=== PATIENT | female | born 1965 | race Caucasian/White ===

== ENCOUNTER 2016-12-15 23:53 | Inpatient (IN) | payer BC, OTHER ==
[~2016-12-15] VITALS: Ht 170.2 cm; Wt 99.2 kg
[2016-12-16] VITALS (10 sets, daily range): BP systolic 118–153; BP diastolic 66–85; PULSE 67–99; TEMP 36.5–36.9; O2SAT 94–97; Ht 170.2 cm; Wt 99.2 kg
[2016-12-16] MEDS ORDERED: SODIUM CHLORIDE 0.9% 1000ML 1,000 ML IV STA ×2 (00:19)
[2016-12-16 00:28] LABS: BASO % 0.1 %; BASO ABS # 0.01 K/uL (0-0.2); COMPLETE YES; EOS % 0.5 %; HEMATOCRIT 46.5 % (37-47); IG% 0.3 %; LYMPH % 46.1 %; LYMPH ABS # 4.97 K/uL (1.2-3.4); MEAN CELL VOLUME 87.6 fL (80-100); MEAN CORPUSCULAR HEMOGLOBIN 29.4 pg (25-34); MEAN CORPUSCULAR HGB CONC 33.5 g/dl (32-36); MEAN PLATELET VOLUME 10.6 fL (7.4-10.4); MONO % 0.6 %; NEUT % 52.4 %; PLATELET COUNT 312 K/uL (130-400); RED BLOOD COUNT 5.31 M/uL (4.2-5.4); WHITE BLOOD COUNT 10.78 K/uL (4.8-10.8)
--- NOTE | 2016-12-16 00:37 | EMERGENCY ROOM VISIT NOTE ---
History First contact with patient: 00:12 Chief Complaint: SYNCOPE Stated Complaint: PASSED OUT TWICE,EXCESSIVE COUGHING,HIT KNEE,RESP Nursing Triage Summary: pt reports she woke up from sleep "feeling funny" with sweats, nausea, headache , and sob. states she got out of bed and "passed out" c/o left knee pain, abrasion noted to left knee. reports a cough and "trouble breathing" at this time. denies pmh or daily medications. states she has been hospitalized for pneumonia in the past. denies numb/tingling/vision changes/chest pain at this time. pt has noted hacking cough. at this time, pt alert and oriented x4. breathing regularly and independently. o2 97% on Room air. History of Present Illness The patient is a 51 year old female who presents to the Emergency Room with complaints of a syncopal episode. The patient states that she woke up feeling strange and tingly, and when she stood up she passed out. She states that she has had congestion in her chest and coughing for the past 5 days. She denies fevers. She reports nausea and shortness of breath. She states she has had a history of pneumonia and has been hospitalized for it in the past. She denies any other past medical history. She reports feeling lightheaded at this time. She denies any chest pain, numbness or weakness. She denies any headache. She has no neck pain but states this is chronic. She denies any neck stiffness. Review of Systems A complete 10 point review of systems was reviewed with the patient with pertinent positives and negatives as per history of present illness. All else were negative. Past Medical/Surgical History Medical Problems: (1) Respiratory failure, acute Social History Smoking Status: Current Every Day Smoker Current/Historical Medications Scheduled Ibuprofen-Diphenhydramine Citr (Advil Pm), 1 TAB PO DIRECTED Omeprazole (Prilosec), 20 MG PO DAILY Physical Exam Vital Signs Date Time Temp Pulse Resp B/P (MAP) Pulse Ox O2 Delivery O2 Flow Rate FiO2 12/16/16 03:00 69 18 139/88 95 Nasal Cannula 3.0 12/16/16 02:13 75 18 131/73 98 Nasal Cannula 3.0 12/16/16 01:45 70 18 128/70 100 Nasal Cannula 3.0 8/30/17 01:38 36.4 12/16/16 01:15 69 18 119/85 100 Nasal Cannula 3.0 12/16/16 01:00 67 18 128/59 99 Nasal Cannula 3.0 12/16/16 00:48 73 20 113/57 96 Nasal Cannula 3.0 12/16/16 00:26 94 Nasal Cannula 3.0 12/16/16 00:25 88 Room Air 12/16/16 00:15 80 12/16/16 00:11 35.8 84 18 84/54 93 Room Air 12/16/16 00:00 94 20 82/50 96 Room Air Physical Exam VITALS: Vitals are noted on the nurse's note and reviewed by myself. Vital signs stable. GENERAL: This is a 51-year-old female, in no acute distress, nondiaphoretic, well-developed well-nourished. SKIN: Slightly cool to touch. HEAD: Normocephalic atraumatic. EARS: External auditory canals clear, tympanic membranes pearly miller without erythema or effusion bilaterally. EYES: Pupils equal round and reactive to light and accommodation. Conjunctivae without injection, sclerae without icterus. NOSE: Patent, turbinates without inflammation or discharge. No sinus tenderness. MOUTH: Mucous membranes moist. Tonsils are not enlarged. Pharynx without erythema or exudate. NECK: Supple without nuchal rigidity. No lymphadenopathy. HEART: Regular rate and rhythm. Grade 2 systolic murmur. LUNGS: Clear to auscultation bilaterally without wheezes, rales or rhonchi. No retractions or accessory muscle use. ABDOMEN: Positive bowel sounds x 4. Soft, nontender. MUSCULOSKELETAL: There is an abrasion to the anterior left knee with some tenderness. NEURO: Patient was alert and oriented to person place and time. Medical Decision & Procedures ER Provider Diagnostic Interpretation: CHEST X-RAY: Questionable patchy bilateral lower lobe infiltrates. Normal cardiac silhouette. No evidence of failure. CTA CHEST: No evidence of pulmonary embolism, thoracic aortic aneurysm or dissection. Areas of mild interstitial prominence bilaterally and atelectasis versus scarring in the right lung. No distinct focal consolidation, pleural effusion or pneumothorax. Cardiac size within normal limits. No pericardial effusion. Right adrenal low-attenuation 4 cm nodule suggestive of adenoma. Given size of nodule, suggest follow-up to ensure stability. Additional/incidental findings: Cholecystectomy. Probable left upper pole renal cyst, incompletely seen. Radiologist: Ami Smith MD Laboratory Results 12/16/16 00:15 Red Blood Count 5.31, Mean Corpuscular Volume 87.6, Mean Corpuscular Hemoglobin 29.4, Mean Corpuscular Hemoglobin Concent 33.5, Mean Platelet Volume 10.6, Neutrophils (%) (Auto) 52.4, Lymphocytes (%) (Auto) 46.1, Monocytes (%) (Auto) 0.6, Eosinophils (%) (Auto) 0.5, Basophils (%) (Auto) 0.1, Neutrophils # (Auto) 5.66, Lymphocytes # (Auto) 4.97, Monocytes # (Auto) 0.06, Eosinophils # (Auto) 0.05, Basophils # (Auto) 0.01 12/16/16 00:15 Test 12/16/16 00:15 12/16/16 00:34 12/16/16 02:10 White Blood Count 10.78 K/uL (4.8-10.8) Red Blood Count 5.31 M/uL (4.2-5.4) Hemoglobin 15.6 g/dL (12.0-16.0) Hematocrit 46.5 % (37-47) Mean Corpuscular Volume 87.6 fL (80-100) Mean Corpuscular Hemoglobin 29.4 pg (25-34) Mean Corpuscular Hemoglobin Concent 33.5 g/dl (32-36) Platelet Count 312 K/uL (130-400) Mean Platelet Volume 10.6 fL (7.4-10.4) Neutrophils (%) (Auto) 52.4 % Lymphocytes (%) (Auto) 46.1 % Monocytes (%) (Auto) 0.6 % Eosinophils (%) (Auto) 0.5 % Basophils (%) (Auto) 0.1 % Neutrophils # (Auto) 5.66 K/uL (1.4-6.5) Lymphocytes # (Auto) 4.97 K/uL (1.2-3.4) Monocytes # (Auto) 0.06 K/uL (0.11-0.59) Eosinophils # (Auto) 0.05 K/uL (0-0.5) Basophils # (Auto) 0.01 K/uL (0-0.2) RDW Standard Deviation 41.0 fL (36.4-46.3) RDW Coefficient of Variation 12.8 % (11.5-14.5) Immature Granulocyte % (Auto) 0.3 % Immature Granulocyte # (Auto) 0.03 K/uL (0.00-0.02) Prothrombin Time 10.7 SECONDS (9.0-12.0) Prothromb Time International Ratio 1.0 (0.9-1.1) Activated Partial Thromboplast Time 23.8 SECONDS (21.0-31.0) Partial Thromboplastin Ratio 0.9 Anion Gap 9.0 mmol/L (3-11) Estimated GFR () 61.5 Estimated GFR (Non- 53.0 BUN/Creatinine Ratio 5.7 (10-20) Calcium Level 8.9 mg/dl (8.5-10.1) Magnesium Level 1.5 mg/dl (1.8-2.4) Total Bilirubin 0.5 mg/dl (0.2-1) Aspartate Amino Transf (AST/SGOT) 14 U/L (15-37) Alanine Aminotransferase (ALT/SGPT) 23 U/L (12-78) Alkaline Phosphatase 102 U/L (45-117) Troponin I < 0.015 ng/ml (0-0.045) Pro-B-Type Natriuretic Peptide 110 pg/ml (0-450) Total Protein 6.9 gm/dl (6.4-8.2) Albumin 3.6 gm/dl (3.4-5.0) Globulin 3.3 gm/dl (2.5-4.0) Albumin/Globulin Ratio 1.1 (0.9-2) Thyroid Stimulating Hormone (TSH) 3.650 uIu/ml (0.300-4.500) Bedside Lactic Acid Venous 2.60 mmol/L (0.90-1.70) Urine Color YELLOW Urine Appearance CLEAR (CLEAR) Urine pH 7.0 (4.5-7.5) Urine Specific Chaplin 1.030 (1.000-1.030) Urine Protein 1+ (NEG) Urine Glucose (UA) NEG (NEG) Urine Ketones NEG (NEG) Urine Occult Blood NEG (NEG) Urine Nitrite NEG (NEG) Urine Bilirubin NEG (NEG) Urine Urobilinogen NEG (NEG) Urine Leukocyte Esterase NEG (NEG) Urine WBC (Auto) 1-5 /hpf (0-5) Urine RBC (Auto) 0-4 /hpf (0-4) Urine Hyaline Casts (Auto) 5-10 /lpf (0-5) Urine Epithelial Cells (Auto) >30 /lpf (0-5) Urine Bacteria (Auto) NEG (NEG) Urine Renal Epithelial Cells /lpf (0-5) Urine Test NEG (NEG) Medications Administered Medications (Trade) Dose Ordered Sig/Tammy Route Start Time Stop Time Status Last Admin Dose Admin Sodium Chloride 1,000 ml @ 999 mls/hr Q1H1M STAT IV 12/16/16 00:19 12/16/16 01:19 DC 12/16/16 00:27 999 MLS/HR Sodium Chloride 1,000 ml @ 999 mls/hr Q1H1M STAT IV 12/16/16 00:19 12/16/16 01:19 DC 12/16/16 00:27 999 MLS/HR Levofloxacin (Levaquin / D5W) 750 mg NOW ONCE IV 12/16/16 01:45 12/16/16 01:46 DC 12/16/16 02:32 750 MG Piperacillin Sod/ Tazobactam Sod (Zosyn Iv) 4.5 gm NOW STAT IV 12/16/16 01:32 12/16/16 01:34 DC 12/16/16 01:43 4.5 GM Potassium Chloride (Klor-Con M10) 40 meq NOW STAT PO 12/16/16 03:20 12/16/16 03:23 DC 12/16/16 03:45 40 MEQ ED Course The patient was evaluated as above. Labs were drawn and IV access was obtained. Patient was medicated with 1 L normal saline solution. Her blood pressure responded well to this. Patient was reevaluated and findings were discussed. A CTA will be performed to rule out PE. Patient was reevaluated and blood pressure is stable at this time. Zosyn and Levaquin were ordered. Case was discussed with the [facility] hospitalist, Dr. Drummond. They agreed to evaluate the patient for admission. Medical Decision Differential diagnosis includes sepsis, pneumonia, cardiogenic shock, electrolyte abnormality, dehydration, among others. The patient is a 51-year-old female who presents today complaining of cough and syncopal episode. Initial blood pressure was found to be 82/50. Patient was hydrated aggressively with IV fluids and her blood pressure responded well to this. [id number] lactic acid is elevated at 2.6. Labs are otherwise fairly unremarkable. Chest x-ray did not show any significant infiltrates. CT of the chest showed no evidence of PE. Urinalysis was not suggestive of infection. I suspect the patient may be septic secondary to a pulmonary source, given her hypotension and elevated lactic acid. She was treated empirically with IV Levaquin and Zosyn. She was admitted to the [facility] service for further evaluation and care. The patient's case was reviewed with Dr. Godfrey, ED attending physician, who agreed with my assessment and treatment plan. Medication Reconcilliation Current Medication List: was personally reviewed by me Blood Pressure Screening Patient's blood pressure: Low blood pressure (will be followed as inpatient) Impression Primary Impression: Sepsis Additional Impression: Syncope Critical Care I have personally spent greater than 35 minutes of critical care time in the direct management of this patient. This includes bedside care, interpretation of diagnostic studies, and testing, discussion with consultants, patient, and family members, and other required patient management activities. This 35 minutes is in excess of all separately billable procedures. Departure Information Referrals No Doctor, Assigned (PCP) Patient Instructions My [facility] Problem Qualifiers Primary Impression: Sepsis Sepsis type: sepsis due to unspecified organism Qualified Codes: A41.9 - Sepsis, unspecified organism
[2016-12-16] MEDS ORDERED: IBUP1TAB PO (00:46)
[2016-12-16] MEDS ORDERED: PRLSR20 PO (00:46)
[2016-12-16 00:50] LABS: PARTIAL THROMBOPLASTIN RATIO 0.9; PROTHROMBIN TIME (PATIENT) 10.7 SECONDS (9.0-12.0)
[2016-12-16 00:54] LABS: ALT/SGPT 23 U/L (12-78); AST/SGOT 14 U/L (15-37); BLOOD UREA NITROGEN 7 mg/dl (7-18); BUN/CREATININE RATIO 5.7 (10-20); CALCIUM 8.9 mg/dl (8.5-10.1); CARBON DIOXIDE 28 mmol/L (21-32); CHLORIDE 104 mmol/L (98-107); GLUCOSE 205 mg/dl (70-99); MAGNESIUM 1.5 mg/dl (1.8-2.4); POTASSIUM 3.1 mmol/L (3.5-5.1); SODIUM 141 mmol/L (136-145)
[2016-12-16 00:59] LABS: ALB/GLOB RATIO 1.1 (0.9-2); ALKALINE PHOSPHATASE 102 U/L (45-117)
[2016-12-16] MEDS ORDERED: PIPERACILLIN/TAZOBACTAM 4.5 GM/100ML D5W IV STA (01:32)
[2016-12-16] MEDS ORDERED: LEVAQUIN 750MG / 150ML D5W IV ONE (01:45)
[2016-12-16] MEDS ORDERED: OPTIRAY 320 IV PRN (02:00)
[2016-12-16 02:31] LABS: URINE APPEARANCE CLEAR (CLEAR); URINE BILIRUBIN NEG (NEG); URINE COLOR YELLOW; URINE EPITHELIAL CELL AUTO >30 /lpf (0-5); URINE NITRITE NEG (NEG); UROBILINOGEN NEG (NEG); ZZUR CULT IF INDIC CLEAN CATCH NO
[2016-12-16 02:32] LABS: MANUAL MICROSCOPIC REQUIRED? NO; REVIEW REQ? YES
[2016-12-16] MEDS ORDERED: POTASSIUM CHLORIDE 10 MEQ TABCR PO STA (03:20)
[2016-12-16 04:21] LABS: ALLEN TEST POS (POS); ARTERIAL BLD GAS O2 SATURATION 97.8 % (90-95); ARTERIAL BLOOD GAS BASE EXCESS -2.7 mEq/L (-9-1.8); ARTERIAL BLOOD GAS HCO3 22 mmol/L (19-24); ARTERIAL BLOOD GAS PO2 105 mm/Hg (80-95); ARTERIAL BLOOD GAS pH 7.37 (7.35-7.45); O2 ADMINISTRATION 2L
[2016-12-16] MEDS ORDERED: NITROGLYCERIN 0.4 MG SL PER TAB CHARGE SL PRN (04:30)
[2016-12-16] MEDS ORDERED: OXYCODONE/ACETAMINOPHEN 5-325 TAB PO PRN (04:30)
[2016-12-16] MEDS ORDERED: LEVALBUTEROL/IPRATROPIUM NEB INH PRN (04:30)
[2016-12-16] MEDS ORDERED: ACETAMINOPHEN 325 MG TAB PO PRN (04:30)
[2016-12-16] MEDS ORDERED: LACTATED RINGER'S 1000ML 1,000 ML IV ONE (04:45)
[2016-12-16] MEDS ORDERED: METHYLPREDNISOLONE IV 40 MG in SYRINGE 0 ML IV ONE (05:00)
[2016-12-16] MEDS ORDERED: LEVALBUTEROL 1.25MG/0.5ML NEB INH PRN (05:00)
[2016-12-16] MEDS: PATIENT'S HEIGHT AND/OR WEIGHT NEEDED SCH ×5 (05:00→13:11)
[2016-12-16] MEDS ORDERED: IPRATROPIUM BROMIDE NEB SOLN 0.02% 2.5 ML VIAL INH PRN (05:00)
[2016-12-16] MEDS ORDERED: DOXYCYCLINE HYCLATE 100 MG CAP PO ONE (05:00)
[2016-12-16] MEDS: MAGNESIUM SULFATE 1GM / D5W 1 GM in PREMIXED IN D5W 100 ML IV SCH ×2 (05:09→06:06)
[2016-12-16] MEDS ORDERED: GLUCAGON FOR INJ 1 MG VIAL SQ PRN (05:30)
[2016-12-16] MEDS ORDERED: GLUCOSE 10 TABS/TUBE PO PRN (05:30)
[2016-12-16] MEDS ORDERED: GLUCOSE 40% GEL 15 GM TUBE PO PRN (05:30)
[2016-12-16] MEDS ORDERED: DEXTROSE 50% 50 ML SYR IV PRN (05:30)
[2016-12-16] MEDS ORDERED: GUAIFENESIN 600 MG TABCR PO ONE (05:45)
[2016-12-16] MEDS ORDERED: INSULIN GLARGINE SOLOSTAR 100 UNITS/ML 3 ML PEN SC ONE (05:45)
[2016-12-16] MEDS ORDERED: INSULIN ASPART 100 UNITS/ML 3 ML PEN SC ONE (05:45)
--- NOTE | 2016-12-16 06:24 | HISTORY & PHYSICAL EXAMINATION ---
DATE OF ADMISSION: 12/16/2016 PRIMARY CARE DOCTOR: Patient has no primary care doctor. CHIEF COMPLAINT: Syncope, coughing, shortness of breath. HISTORY OF PRESENT ILLNESS: Hx obtained from patient and records. Medical history significant for reflux, mood disorder, ongoing tobacco abuse, irritable bowel syndrome. Last few days, patient noted cough symptoms, dry, unable to expectorate, possible sick contacts at work. No chest pain. Appetite okay. Denies aspiration but admits to some cough symptoms especially at night in supine position. Last night, she woke up feeling funny with sweats, nausea, headache, increasing shortness of breath. Two syncopal episodes, unwitnessed, no incontinence, no tongue biting. Remembers a funny feeling before passing out. Patient was found at home by his son, noted to have bruising on the left knee. Initially hypotensive in the ER, SBP 80s. Patient given NSS, Levaquin and Zosyn for sepsis. MEDICAL HISTORY: As above. SURGERIES: She has had cholecystectomy, some arm surgery. HOME MEDICATIONS: Include Protonix, Prilosec, Advil. ALLERGIES: No known drug allergies. FAMILY HISTORY: Heart disease, lung cancer, breast cancer, diabetes. PERSONAL AND SOCIAL HISTORY: Half pack daily. No chronic alcohol abuse. 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 REVIEW OF SYSTEMS: As per HPI, all other ROS negative. PHYSICAL EXAMINATION: VITAL SIGNS: Blood pressure was noted to be 82/50 later 100/70, pulse rate noted to be 94, respiratory rate 20, temperature 35.8, sats 93% on room air. GENERAL: Noted to be slightly anxious, no respiratory distress, obese. SKIN: Normal color. HEENT: Villarreal palpebral conjunctivae. Dry mucosa. NECK: Short neck. LUNGS: occ wheeze. HEART: Regular rate and rhythm. ABDOMEN: Soft. EXTREMITIES: Minimal LE edema, no tenderness, some bruising on the left knee. NEUROLOGIC: No gross focality. LABS: Hemoglobin was 15.6, WBC 10 Sodium noted to be 138 Cl 104, CO2 28, BUN 7, creatinine 1 glucose 205. IMAGING DATA: CTA initial read - no pulmonary embolism, some interstitial prominence, atelectasis. EKG as per my interpretation NSR no ischemia ASSESSMENT: 1. Acute hypoxemic respiratory failure secondary to complicated bronchitis/ atypical pneumonia, 2. possible sepsis secondary to above. 3. Syncope, likely secondary to orthostasis, low blood pressure due to illness. Rule out cardiac dysfunction, seizure disorder (recurrent episodes, account of weird sensation prior to falling down) 4. Ongoing tobacco abuse. 5. Hyperglycemia, rule out diabetes. PLAN: PCU CS. Doxycycline nebs, steroids syncope workup. TTE, EEG Nicotine patch. Check hemoglobin A1c. DVT prophylaxis Lovenox subQ Full code. MTDD
[2016-12-16] MEDS: IPRATROPIUM BROMIDE NEB SOLN 0.02% 2.5 ML VIAL INH SCH ×3 (07:12→19:51)
[2016-12-16] MEDS: LEVALBUTEROL 1.25MG/0.5ML NEB INH SCH ×3 (07:12→19:51)
--- NOTE | 2016-12-16 07:24 | DIAGNOSTIC IMAGING REPORT ---
CHEST ONE VIEW PORTABLE CLINICAL HISTORY: Cough. Syncope. COMPARISON STUDY: No previous studies for comparison. FINDINGS: Lung volumes are normal. No pneumothorax or pleural effusion is present. Linear right lower lung opacity favors atelectasis. Cardiac size is normal. Mediastinal contours are normal. There is no evidence of pulmonary edema. Subtle interstitial thickening is present. IMPRESSION: 1. Linear right lower lung opacity suggestive of atelectasis. 2. Mild interstitial thickening, a nonspecific finding. Electronically signed by: Ramon Nowak M.D. 12/16/2016 7:23 AM Dictated Date/Time: 12/16/2016 7:22 AM
--- NOTE | 2016-12-16 07:43 | DIAGNOSTIC IMAGING REPORT ---
CHEST CTA for PULMONARY ARTERIES CT DOSE: 591.97 mGy.cm HISTORY: Short of breath. Hypotension. TECHNIQUE: Multiaxial CT images of the chest were performed following the intravenous administration of contrast to evaluate the pulmonary arteries. Maximal intensity projection images were also obtained. A dose lowering technique was utilized adhering to the principles of ALARA. COMPARISON STUDY: Chest 12/16/2016. FINDINGS: No pleural effusions. No pneumothorax. The central airways are patent. Mild interstitial thickening at the lung apices. Mild bronchial thickening. A few linear and patchy densities seen within the right lower lobe. A 6 mm groundglass nodule within the left lower lobe on image 138. The heart is normal in size. Cholecystectomy. The visualized liver and spleen are unremarkable. Normal left adrenal gland. A 3.8 cm right adrenal gland nodule consistent with a benign adenoma. Normal caliber thoracic aorta with no evidence for dissection. Mild respiratory motion artifact within the pulmonary arteries resulting in nondiagnostic evaluation of some of the upper and lower lobe segmental/subsegmental pulmonary arteries. However, no definite filling defects within the pulmonary arteries to suggest pulmonary embolus. IMPRESSION: 1. No definite evidence for pulmonary embolus. 2. A 6 mm groundglass nodule within the left lower lobe. Please refer to the chart below for recommended follow-up. 3. A 3.8 cm right adrenal benign adenoma. 4. Mild interstitial thickening at the lung apices and mild bronchial wall thickening. There is also a few linear and patchy densities within the right lower lobe. This could be due to chronic change or change mild pneumonitis. Please refer to below summary of Fleischner criteria recommendations for follow-up of incidental CT nodules (Apurva Martinez, Guidelines for management of small pulmonary nodules detected on CT scans: A statement from the Fleischner Society, Radiology 237: [phone].) SOLID NODULES Solitary nodule size: <6 mm * Low risk patients: no follow-up needed * high risk patients: optional CT at 12 months Solitary nodule size: 6-8 mm * Low risk patients: follow-up at 6-12 months, then consider further follow-up at 18-24 months * high risk patients: initial follow-up CT at 6-12 months and then at 18-24 months if no change Solitary nodule size: >8 mm * either low or high risk patients - consider follow-up CT at 3 months, and/or CT-PET, and/or biopsy Multiple nodules size: <6 mm * Low risk patients: no routine follow-up * high risk patients: optional CT at 12 months Multiple nodules size: 6-8 mm * Low risk patients: follow-up at 3-6 months, then consider further follow-up at 18-24 months * high risk patients: follow-up at 3-6 months, then at 18-24 months if no change Multiple nodules size: >8 mm * Low risk patients: follow-up at 3-6 months, then consider further follow-up at 18-24 months * high risk patients: follow-up at 3-6 months, then at 18-24 months if no change Note: newly detected indeterminate nodule in persons 35 years of age or older. * Low risk patients: minimal or absent history of smoking and/or other known risk factors * high risk patients: history of smoking or of other known risk factors (e.g. first degree relative with lung cancer, or exposure to asbestos, radon, uranium) * if a nodule up to 8 mm is partly solid or is ground glass further follow-up is required after 24 months to exclude possible slow growing adenocarcinoma (ALISON) SUBSOLID NODULES Solitary pure ground-glass nodule * nodule size <6 mm - no CT follow-up required * nodule size >=6 mm - follow-up CT at 6-12 months, then every 2 years until 5 years Solitary part-solid nodule * nodule size <6 mm - no CT follow-up required * nodule size >=6 mm - follow-up CT at 3-6 months. If unchanged, and solid component remains <6 mm, then annual follow-up for 5 years Multiple subsolid nodules * nodule size <6 mm - follow-up CT at 3-6 months, consider further follow-up at 2 and 4 years if stable * nodule size >=6 mm - follow-up CT at 3-6 months, subsequent management based on the most suspicious nodule(s) Electronically signed by: Wali Garcia M.D. 12/16/2016 7:42 AM Dictated Date/Time: 12/16/2016 7:34 AM
[2016-12-16 08:19] LABS: ESTIMATED AVERAGE GLUCOSE 123 mg/dl; HA1C FLAG Normal (Normal)
[2016-12-16] MEDS ORDERED: LEVALBUTEROL/IPRATROPIUM NEB INH SCH (09:00)
[2016-12-16] MEDS: PANTOprazole SOD 40 MG TAB PO SCH ×2 (09:11→21:40)
[2016-12-16] MEDS: NICOTINE 14 MG/24 HR TDSY TD SCH (09:12)
[2016-12-16] MEDS: ENOXAPARIN 40 MG/0.4 ML SYR SC SCH (09:12)
[2016-12-16] MEDS: INSULIN ASPART 100 UNITS/ML 3 ML PEN SC SCH ×3 (12:46→21:00)
--- NOTE | 2016-12-16 15:35 | ECHOCARDIOGRAM REPORT ---
*NOTICE TO RECEIVING [employer] This information is strictly Confidential and protected under [place] law. [place] law prohibits you from making any further disclosure of this information unless further disclosure is expressly permitted by the written consent of the person to whom it pertains or is authorized by law. A general authorization for the release of medical or other information is not sufficient for this purpose. Hospital accepts no responsibility if the information is made available to any other person, INCLUDING THE PATIENT. Interpretation Summary * Name: AGUILAR CORONADO Study Date: 12/16/2016 08:10 AM BP: 140/61 mmHg * Patient Location: [facility] HR: 67 * : 1965 (M/d/yyyy) Gender: Female Height: 67 in * Age: 51 yrs Weight: 222 lb * Ordering Physician: Oconer * Referring Physician: Self, Referred * Performed By: Chepe Linder RCS * * Reason For Study: Syncope * BSA: 2.1 m2 * -- Conclusions -- * The left ventricle is normal in size. * There is borderline concentric left ventricular hypertrophy. * The left ventricular wall motion is normal. * Left ventricular systolic function is normal. * Ejection Fraction = 60-65%. Procedure Details * A complete two-dimensional transthoracic echocardiogram was performed (2D, M-mode, Doppler and color flow Doppler). Left Ventricle * The left ventricle is normal in size. * There is borderline concentric left ventricular hypertrophy. * Ejection Fraction = 60-65%. * Left ventricular systolic function is normal. * The left ventricular wall motion is normal. Right Ventricle * The right ventricle is normal in size and function. Atria * The left atrial size is normal. * Right atrial size is normal. * No ASD detected; PFO is not assessed. Mitral Valve * The mitral valve anatomy is normal. * There is no mitral valve stenosis. * There is trace mitral regurgitation. Tricuspid Valve * The tricuspid valve anatomy is normal. * There is no tricuspid stenosis. * There is trace tricuspid regurgitation. Aortic Valve * The aortic valve is trileaflet. * No hemodynamically significant valvular aortic stenosis. * No aortic regurgitation is present. Pulmonic Valve * The pulmonic valve is not well visualized. Great Vessels * The aortic root is normal size. Pericardium/Pleural * There is no pericardial effusion. Great Vessels * Normal inferior vena cava diameter and respiratory variation suggests normal central venous pressure. MMode 2D Measurements and Calculations IVSd 0.96 cm IVSs 1.3 cm LVIDd 5.1 cm LVIDs 3.2 cm LVPWd 0.96 cm LVPWs 1.2 cm IVS/LVPW 1.0 FS 37.4 % EDV(Teich) 126.0 ml ESV(Teich) 41.5 ml EF(Teich) 67.1 % EDV(cubed) 135.7 ml ESV(cubed) 33.3 ml EF(cubed) 75.5 % % IVS thick 34.4 % % LVPW thick 26.8 % LV mass(C)d 180.9 grams LV mass(C)dI 85.6 grams/m\S\2 LV mass(C)s 129.5 grams LV mass(C)sI 61.3 grams/m\S\2 CO(Teich) 6.0 l/min CI(Teich) 2.8 l/min/m\S\2 SV(Teich) 84.5 ml SI(Teich) 40.0 ml/m\S\2 CO(cubed) 7.3 l/min CI(cubed) 3.4 l/min/m\S\2 SV(cubed) 102.4 ml SI(cubed) 48.4 ml/m\S\2 Ao root diam 3.5 cm Ao root area 9.4 cm\S\2 ACS 1.7 cm LA dimension 4.0 cm asc Aorta Diam 3.0 cm LA/Ao 1.2 LVAd ap4 37.4 cm\S\2 LVLd ap4 8.7 cm EDV(MOD-sp4) 129.0 ml LVAs ap4 18.5 cm\S\2 LVLs ap4 7.2 cm ESV(MOD-sp4) 38.0 ml EF(MOD-sp4) 70.5 % LVAd ap2 35.2 cm\S\2 LVLd ap2 9.0 cm EDV(MOD-sp2) 115.0 ml LVAs ap2 17.4 cm\S\2 LVLs ap2 7.3 cm ESV(MOD-sp2) 34.0 ml EF(MOD-sp2) 70.4 % CO(MOD-sp4) 6.5 l/min CI(MOD-sp4) 3.1 l/min/m\S\2 SV(MOD-sp4) 91.0 ml SI(MOD-sp4) 43.1 ml/m\S\2 CO(MOD-sp2) 5.8 l/min CI(MOD-sp2) 2.7 l/min/m\S\2 SV(MOD-sp2) 81.0 ml SI(MOD-sp2) 38.3 ml/m\S\2 Doppler Measurements and Calculations MV E max bina 88.8 cm/sec MV A max bina 59.7 cm/sec MV E/A 1.5 MV P1/2t max bina 99.9 cm/sec MV P1/2t 70.7 msec MVA(P1/2t) 3.1 cm\S\2 MV dec slope 413.6 cm/sec\S\2 MV dec time 0.21 sec Ao V2 max 129.0 cm/sec Ao max PG 6.7 mmHg Ao max PG (full) 0.01 mmHg LV V1 max PG 6.6 mmHg LV V1 max 128.9 cm/sec PA V2 max 98.6 cm/sec PA max PG 3.9 mmHg PI max bina 186.0 cm/sec PI max PG 13.8 mmHg PI dec slope 140.2 cm/sec\S\2 PI P1/2t 388.5 msec
[2016-12-16] MEDS: CEFTRIAXONE SOD INJ 1 GM in DEXTROSE 5% ADD-VANTAGE 50ML 50 ML IV SCH (17:23)
--- NOTE | 2016-12-16 18:03 | Progress Note ---
Internal Med Progress Note Date of Service: Dec 16, 2016. Provider Documentation: presented with syncope . Initially hypotensive.received fluids Doing fine now. Has cough. Hx of smoking. Possible pneumonia. on doxycycline and Rocephin. feeling better.Echo borderline LVH otherwise unremarkable. Needs to followup on lung nodule. Continue abx. ASSESSMENT & PLAN: [] DVT PROPHYLAXIS [] DISPOSITION [] Vital Signs: Date Time Temp Pulse Resp B/P (MAP) Pulse Ox O2 Delivery O2 Flow Rate FiO2 12/16/16 15:39 36.8 81 18 127/66 (86) 94 Room Air 12/16/16 14:20 82 16 94 Room Air 12/16/16 12:00 Nasal Cannula 3.0 12/16/16 11:57 36.9 67 16 136/74 (94) 94 Room Air 12/16/16 08:00 Nasal Cannula 3.0 12/16/16 07:41 82 16 95 Room Air 12/16/16 04:30 36.5 72 18 153/85 96 Nasal Cannula 3.0 12/16/16 04:02 71 16 140/61 97 12/16/16 03:44 71 16 140/61 97 Room Air Nasal Cannula 12/16/16 03:00 69 18 139/88 95 Nasal Cannula 3.0 12/16/16 02:13 75 18 131/73 98 Nasal Cannula 3.0 12/16/16 01:45 70 18 128/70 100 Nasal Cannula 3.0 12/16/16 01:38 36.4 12/16/16 01:15 69 18 119/85 100 Nasal Cannula 3.0 12/16/16 01:00 67 18 128/59 99 Nasal Cannula 3.0 12/16/16 00:48 73 20 113/57 96 Nasal Cannula 3.0 12/16/16 00:26 94 Nasal Cannula 3.0 12/16/16 00:25 88 Room Air 12/16/16 00:15 80 12/16/16 00:11 35.8 84 18 84/54 93 Room Air 12/16/16 00:00 94 20 82/50 96 Room Air Lab Results: Results Past 24 Hours Test 12/16/16 00:15 12/16/16 00:34 12/16/16 02:10 12/16/16 04:12 Range/Units White Blood Count 10.78 4.8-10.8 K/uL Red Blood Count 5.31 4.2-5.4 M/uL Hemoglobin 15.6 12.0-16.0 g/dL Hematocrit 46.5 37-47 % Mean Corpuscular Volume 87.6 80-100 fL Mean Corpuscular Hemoglobin 29.4 25-34 pg Mean Corpuscular Hemoglobin Concent 33.5 32-36 g/dl Platelet Count 312 130-400 K/uL Mean Platelet Volume 10.6 7.4-10.4 fL Neutrophils (%) (Auto) 52.4 % Lymphocytes (%) (Auto) 46.1 % Monocytes (%) (Auto) 0.6 % Eosinophils (%) (Auto) 0.5 % Basophils (%) (Auto) 0.1 % Neutrophils # (Auto) 5.66 1.4-6.5 K/uL Lymphocytes # (Auto) 4.97 1.2-3.4 K/uL Monocytes # (Auto) 0.06 0.11-0.59 K/uL Eosinophils # (Auto) 0.05 0-0.5 K/uL Basophils # (Auto) 0.01 0-0.2 K/uL RDW Standard Deviation 41.0 36.4-46.3 fL RDW Coefficient of Variation 12.8 11.5-14.5 % Immature Granulocyte % (Auto) 0.3 % Immature Granulocyte # (Auto) 0.03 0.00-0.02 K/uL Prothrombin Time 10.7 9.0-12.0 SECONDS Prothromb Time International Ratio 1.0 0.9-1.1 Activated Partial Thromboplast Time 23.8 21.0-31.0 SECONDS Partial Thromboplastin Ratio 0.9 Sodium Level 141 136-145 mmol/L Potassium Level 3.1 3.5-5.1 mmol/L Chloride Level 104 98-107 mmol/L Carbon Dioxide Level 28 21-32 mmol/L Anion Gap 9.0 3-11 mmol/L Blood Urea Nitrogen 7 7-18 mg/dl Creatinine 1.20 0.60-1.20 mg/dl Estimated GFR () 61.5 Estimated GFR (Non- 53.0 BUN/Creatinine Ratio 5.7 10-20 Random Glucose 205 70-99 mg/dl Estimated Average Glucose 123 mg/dl Hemoglobin A1c 5.9 4.5-5.6 % Calcium Level 8.9 8.5-10.1 mg/dl Magnesium Level 1.5 1.8-2.4 mg/dl Total Bilirubin 0.5 0.2-1 mg/dl Aspartate Amino Transf (AST/SGOT) 14 15-37 U/L Alanine Aminotransferase (ALT/SGPT) 23 12-78 U/L Alkaline Phosphatase 102 45-117 U/L Troponin I < 0.015 0-0.045 ng/ml Pro-B-Type Natriuretic Peptide 110 0-450 pg/ml Total Protein 6.9 6.4-8.2 gm/dl Albumin 3.6 3.4-5.0 gm/dl Globulin 3.3 2.5-4.0 gm/dl Albumin/Globulin Ratio 1.1 0.9-2 Thyroid Stimulating Hormone (TSH) 3.650 0.300-4.500 uIu/ml Bedside Lactic Acid Venous 2.60 0.90-1.70 mmol/L Urine Color YELLOW Urine Appearance CLEAR CLEAR Urine pH 7.0 4.5-7.5 Urine Specific [place] 1.030 1.000-1.030 Urine Protein 1+ NEG Urine Glucose (UA) NEG NEG Urine Ketones NEG NEG Urine Occult Blood NEG NEG Urine Nitrite NEG NEG Urine Bilirubin NEG NEG Urine Urobilinogen NEG NEG Urine Leukocyte Esterase NEG NEG Urine WBC (Auto) 1-5 0-5 /hpf Urine RBC (Auto) 0-4 0-4 /hpf Urine Hyaline Casts (Auto) 5-10 0-5 /lpf Urine Epithelial Cells (Auto) >30 0-5 /lpf Urine Bacteria (Auto) NEG NEG Urine Renal Epithelial Cells 0-5 /lpf Urine Test NEG NEG Arterial Blood pH 7.37 7.35-7.45 Arterial Blood Partial Pressure CO2 40 35-46 mmHg Arterial Blood Partial Pressure O2 105 80-95 mm/Hg Arterial Blood HCO3 22 19-24 mmol/L Arterial Blood Oxygen Saturation 97.8 90-95 % Arterial Blood Base Excess -2.7 -9-1.8 mEq/L Arterial Blood Gas Delivery 2L Lui Test POS POS Lactic Acid Level 1.5 0.4-2.0 mmol/L Test 12/16/16 06:22 12/16/16 07:56 12/16/16 11:53 12/16/16 12:48 Range/Units Bedside Glucose 128 143 149 70-90 mg/dl Troponin I 0.020 0-0.045 ng/ml Test 12/16/16 16:49 Range/Units Bedside Glucose 115 70-90 mg/dl Microbiology Results 12/16/16 Blood Culture, Received Pending 12/16/16 Blood Culture, Received Pending
[2016-12-16] MEDS: GUAIFENESIN 600 MG TABCR PO SCH (21:40)
[2016-12-16] MEDS: DOXYCYCLINE HYCLATE 100 MG CAP PO SCH (21:41)
[2016-12-17] VITALS (13 sets, daily range): BP systolic 113–154; BP diastolic 68–85; PULSE 69–82; TEMP 36.3–36.8; O2SAT 94–100
[2016-12-17] MEDS: IPRATROPIUM BROMIDE NEB SOLN 0.02% 2.5 ML VIAL INH SCH ×4 (02:03→19:31)
[2016-12-17] MEDS: LEVALBUTEROL 1.25MG/0.5ML NEB INH SCH ×4 (02:03→19:31)
[2016-12-17] MEDS: INSULIN ASPART 100 UNITS/ML 3 ML PEN SC SCH ×4 (06:30→20:58)
[2016-12-17 06:43] LABS: BASO % 0.1 %; BASO ABS # 0.01 K/uL (0-0.2); COMPLETE YES; EOS % 0.5 %; HEMATOCRIT 39.2 % (37-47); IG% 0.3 %; LYMPH % 26.5 %; LYMPH ABS # 3.86 K/uL (1.2-3.4); MEAN CELL VOLUME 88.9 fL (80-100); MEAN CORPUSCULAR HGB CONC 32.7 g/dl (32-36); MEAN PLATELET VOLUME 10.5 fL (7.4-10.4); MONO % 5.4 %; NEUT % 67.2 %; PLATELET COUNT 243 K/uL (130-400); RED BLOOD COUNT 4.41 M/uL (4.2-5.4); WHITE BLOOD COUNT 14.59 K/uL (4.8-10.8)
[2016-12-17 07:23] LABS: BUN/CREATININE RATIO 12.7 (10-20); CALCIUM 8.3 mg/dl (8.5-10.1); CREATININE 0.73 mg/dl (0.60-1.20); POTASSIUM 4.1 mmol/L (3.5-5.1)
[2016-12-17] MEDS: PANTOprazole SOD 40 MG TAB PO SCH ×2 (09:06→20:55)
[2016-12-17] MEDS: DOXYCYCLINE HYCLATE 100 MG CAP PO SCH (09:06)
[2016-12-17] MEDS: GUAIFENESIN 600 MG TABCR PO SCH ×2 (09:06→20:55)
[2016-12-17] MEDS: ENOXAPARIN 40 MG/0.4 ML SYR SC SCH (09:07)
[2016-12-17] MEDS: NICOTINE 14 MG/24 HR TDSY TD SCH (09:07)
[2016-12-17] MEDS: INSULIN GLARGINE SOLOSTAR 100 UNITS/ML 3 ML PEN SC SCH (09:21)
[2016-12-17] MEDS ORDERED: AZITHROMYCIN 250 MG TAB PO STA (13:38)
--- NOTE | 2016-12-17 13:49 | Progress Note ---
Internal Med Progress Note Date of Service: Dec 17, 2016. Provider Documentation: still has lot of cough but not bringing out any sputum ambulating ok still sweaty no chest pain afebrile Exam: General-alert and oriented. Not in distress. ENT-normal hearing Neck-no neck masses Lungs-cta b/l no wheezing or crackles Heart-s1 and s2 heard regular rate and rhythm, no murmurs Abdomen-soft bowel sounds present non tender no distension Extremities no edema no erythema Neuro-alert and oriented moves extremities ASSESSMENT & PLAN: 1. Acute hypoxemic respiratory failure secondary to complicated bronchitis/ atypical pneumonia, possible sepsis secondary to above. hx of smoking on iv Rocephin and doxycycline po prednisone and nebs will monitor. 3. Syncope, likely secondary to orthostasis, low blood pressure due to illness. echo unremarkable. await eeg. currently stable. 4. Ongoing tobacco abuse.Smoking cessation counselling. 5. Hyperglycemia, hba1c 5.9 will monitor Blood sugars while on prednisone DVT PROPHYLAXIS Lovenox DISPOSITION to be determined Vital Signs: Date Time Temp Pulse Resp B/P (MAP) Pulse Ox O2 Delivery O2 Flow Rate FiO2 12/17/16 12:01 100 Room Air 12/17/16 11:38 36.7 69 16 131/85 (100) 94 Room Air 12/17/16 08:00 100 Room Air 12/17/16 07:17 36.5 71 16 113/68 (83) 100 Room Air 12/17/16 07:02 75 16 97 Room Air 12/17/16 04:27 36.3 78 16 121/76 (91) 97 Room Air 12/17/16 04:01 Room Air 12/17/16 00:05 Room Air 12/16/16 23:33 36.7 89 18 118/72 (87) 95 Room Air 12/16/16 20:00 94 Room Air 12/16/16 19:53 82 16 97 Room Air 12/16/16 19:13 36.6 99 18 121/68 (85) 95 Room Air 12/16/16 16:00 94 Room Air 12/16/16 15:39 36.8 81 18 127/66 (86) 94 Room Air 12/16/16 14:20 82 16 94 Room Air Lab Results: Results Past 24 Hours Test 12/16/16 16:49 12/16/16 20:19 12/17/16 06:10 12/17/16 07:34 Range/Units Bedside Glucose 115 108 98 70-90 mg/dl White Blood Count 14.59 4.8-10.8 K/uL Red Blood Count 4.41 4.2-5.4 M/uL Hemoglobin 12.8 12.0-16.0 g/dL Hematocrit 39.2 37-47 % Mean Corpuscular Volume 88.9 80-100 fL Mean Corpuscular Hemoglobin 29.0 25-34 pg Mean Corpuscular Hemoglobin Concent 32.7 32-36 g/dl Platelet Count 243 130-400 K/uL Mean Platelet Volume 10.5 7.4-10.4 fL Neutrophils (%) (Auto) 67.2 % Lymphocytes (%) (Auto) 26.5 % Monocytes (%) (Auto) 5.4 % Eosinophils (%) (Auto) 0.5 % Basophils (%) (Auto) 0.1 % Neutrophils # (Auto) 9.80 1.4-6.5 K/uL Lymphocytes # (Auto) 3.86 1.2-3.4 K/uL Monocytes # (Auto) 0.79 0.11-0.59 K/uL Eosinophils # (Auto) 0.08 0-0.5 K/uL Basophils # (Auto) 0.01 0-0.2 K/uL RDW Standard Deviation 42.8 36.4-46.3 fL RDW Coefficient of Variation 13.2 11.5-14.5 % Immature Granulocyte % (Auto) 0.3 % Immature Granulocyte # (Auto) 0.05 0.00-0.02 K/uL Sodium Level 142 136-145 mmol/L Potassium Level 4.1 3.5-5.1 mmol/L Chloride Level 111 98-107 mmol/L Carbon Dioxide Level 27 21-32 mmol/L Anion Gap 4.0 3-11 mmol/L Blood Urea Nitrogen 9 7-18 mg/dl Creatinine 0.73 0.60-1.20 mg/dl Est Creatinine Clear Calc Drug Dose 113.3 ml/min Estimated GFR () 112.1 Estimated GFR (Non- 96.7 BUN/Creatinine Ratio 12.7 10-20 Random Glucose 100 70-99 mg/dl Calcium Level 8.3 8.5-10.1 mg/dl Magnesium Level 2.0 1.8-2.4 mg/dl Chemistry Specimen Hemolysis Test 12/17/16 11:40 Range/Units Bedside Glucose 104 70-90 mg/dl
--- NOTE | 2016-12-17 14:36 | ELECTROENCEPHALOGRAPH REPORT ---
REQUESTING: Dr. Drummond. CLINICAL DIAGNOSIS: Syncope versus seizures. ELECTROENCEPHALOGRAM DIAGNOSIS: Essentially normal during wakefulness. DESCRIPTION OF TRACING: This EEG was done as a bedside recording with simultaneous video analysis of patient movement and behavior. Photic stimulation was performed. Hyperventilation was not and drowsiness and light sleep were not recorded. Under these conditions, there is evidence for normal appearing background rhythm in the alpha range of up to 10 Hz of maximum frequency and 30 microvolts of maximum amplitude. This is maximum posterior head regions and bilaterally symmetrical. Polymorphic mid frequency theta activity of modest voltage is seen over all head regions without clear focal or regional predominance. Anterior head region maximum bilaterally symmetrical low voltage fast activity in the beta range is present. Photic stimulation provoked modest driving response without a photomyogenic or photoparoxysmal component. At no time during the waking tracing is there evidence for potentially epileptogenic activity in the form of polyspike or spike wave bursts, focal sharp waves or focal spikes. INTERPRETATION: This EEG is essentially normal during wakefulness without evidence for focal or generalized encephalopathy and without evidence for potentially epileptogenic activity.
[2016-12-17] MEDS: CEFTRIAXONE SOD INJ 1 GM in DEXTROSE 5% ADD-VANTAGE 50ML 50 ML IV SCH (16:03)
[2016-12-18] MEDS: IPRATROPIUM BROMIDE NEB SOLN 0.02% 2.5 ML VIAL INH SCH ×2 (02:13→07:07)
[2016-12-18] MEDS: LEVALBUTEROL 1.25MG/0.5ML NEB INH SCH ×2 (02:13→07:07)
[2016-12-18 04:38] VITALS: BP 136/84; PULSE 78; TEMP 36.6; O2SAT 95
[2016-12-18] MEDS: INSULIN ASPART 100 UNITS/ML 3 ML PEN SC SCH ×2 (06:30→12:25)
[2016-12-18 07:09] VITALS: PULSE 72; O2SAT 98
[2016-12-18 07:38] VITALS: BP 137/82; PULSE 72; TEMP 36.7; O2SAT 94
[2016-12-18 08:00] VITALS: O2SAT 94
[2016-12-18] MEDS: GUAIFENESIN 600 MG TABCR PO SCH (08:31)
[2016-12-18] MEDS: PANTOprazole SOD 40 MG TAB PO SCH (08:31)
[2016-12-18] MEDS: NICOTINE 14 MG/24 HR TDSY TD SCH (08:32)
[2016-12-18] MEDS: ENOXAPARIN 40 MG/0.4 ML SYR SC SCH (08:33)
[2016-12-18] MEDS: INSULIN GLARGINE SOLOSTAR 100 UNITS/ML 3 ML PEN SC SCH (08:34)
[2016-12-18] MEDS ORDERED: AZITHROMYCIN 250 MG TAB PO SCH (09:00)
[2016-12-18 11:21] VITALS: BP 124/79; PULSE 80; TEMP 36.4; O2SAT 96
[2016-12-18] MEDS ORDERED: CEFU1TAB36 PO (12:52)
[2016-12-18] MEDS ORDERED: AZIT250T5 PO (12:52)
[2016-12-18] MEDS ORDERED: PRED10TA PO (12:52)
[2016-12-18] MEDS ORDERED: VNTHFA/IN INH (12:52)
[2016-12-18] MEDS ORDERED: GFNSR600 PO (12:52)
--- NOTE | 2016-12-18 12:55 | Discharge Instructions ---
Discharge Instructions Date of Service Dec 18, 2016. Admission Reason for Admission: Respiratory Failure, Acute Discharge Discharge Diagnosis / Problem: ACUTE RESP FAILUE, SEPSIS? Discharge Goals Goal(s): Decrease discomfort, Improve function Activity Recommendations Activity Limitations: resume your previous activity . Instructions / Follow-Up Instructions / Follow-Up FOLLOWUP WITH FAMILY DOCTOR IN ONE WEEK. STRONGLY ADVISE FOR SMOKING CESSATION. SLEEP STUDY AND STRESS PER FAMILY DOCTOR. BORDERLINE DIABETES- TRY TO FOLLOW DIABETIC DIET( LOW CARB DIET) AND REGULAR EXERCISE. CT CHEST IN 6 MONTHS WITH FAMILY DOCTOR REFERRAL FOR LUNG NODULE. Current Hospital Diet Patient's current hospital diet: AHA Diet (Heart Healthy) Discharge Diet Recommended Diet: AHA Diet (Heart Healthy), Diabetes Type 2 Diet Pending Studies Studies pending at discharge: no Laboratory Results Hemoglobin A1c Test 12/16/16 00:15 Range/Units Estimated Average Glucose 123 mg/dl Hemoglobin A1c 5.9 H 4.5-5.6 % Work Instructions Return To Work: 1 day Additional Instructions: CAN GO TO WORK ON 2016 Medical Emergencies . Who to Call and When: Medical Emergencies: If at any time you feel your situation is an emergency, please call 911 immediately. . Non-Emergent Contact Non-Emergency issues call your: Primary Care Provider . . "Provider Documentation" section prepared by Marlon Jefferson. . VTE Core Measure Inpt VTE Proph given/why not?: Enoxaparin (Lovenox)SQ
[2016-12-18 13:03] VITALS: BP 124/79; PULSE 80; TEMP 36.4; O2SAT 96
--- NOTE | 2016-12-18 17:13 | Progress Note ---
Internal Med Progress Note Date of Service: Dec 18, 2016. Provider Documentation: ambulating fine cough improving denies sob or chest pain afebrile ok for discharge Exam: General-alert and oriented. Not in distress. ENT-normal hearing Neck-no neck masses Lungs-cta b/l no wheezing or crackles Heart-s1 and s2 heard regular rate and rhythm, no murmurs Abdomen-soft bowel sounds present non tender no distension Extremities no edema no erythema Neuro-alert and oriented moves extremities ASSESSMENT & PLAN: 1. Acute hypoxemic respiratory failure secondary to complicated bronchitis/ atypical pneumonia, possible sepsis secondary to above. hx of smoking on iv Rocephin and doxycycline po prednisone and nebs improved discharged on po cefuroxime and azithromycin prednisone taper and albuterol prn needs f/u with pcp 3. Syncope, likely secondary to orthostasis, low blood pressure due to illness. echo unremarkable. EEG unremarkable stable. No more epsiodes needs f/u with pcp 4. Ongoing tobacco abuse.Smoking cessation counselling. 5. Hyperglycemia, hba1c 5.9 will monitor Blood sugars while on prednisone advised ada diet Discharged home Vital Signs: Date Time Temp Pulse Resp B/P (MAP) Pulse Ox O2 Delivery O2 Flow Rate FiO2 12/18/16 13:03 36.4 80 18 96 Room Air 12/18/16 11:21 36.4 80 18 124/79 (94) 96 12/18/16 08:00 94 Room Air 12/18/16 07:38 36.7 72 18 137/82 (100) 94 12/18/16 07:09 72 16 98 Room Air 12/18/16 04:38 36.6 78 18 136/84 (101) 95 Room Air 12/18/16 04:00 Room Air 12/18/16 00:00 Room Air 12/17/16 23:37 36.8 82 16 144/79 (100) 95 Room Air 12/17/16 20:00 96 Room Air 12/17/16 19:33 36.5 72 18 134/74 (94) 95 Room Air 12/17/16 19:32 77 16 96 Room Air Lab Results: Results Past 24 Hours Test 12/17/16 20:32 12/18/16 07:19 12/18/16 11:38 Range/Units Bedside Glucose 129 88 107 70-90 mg/dl
--- NOTE | 2016-12-18 18:03 | Discharge Summary ---
Discharge Summary Date of Service Dec 18, 2016. Discharge Summary Admission Date: Dec 16, 2016 at 03:22 Discharge Date: Dec 18, 2016 Discharge Disposition: Home Principal Diagnosis: ACUTE RESP FAILURE ATYPICAL PNEUMONIA SYNCOPE Secondary Diagnoses/Problems: reflux, mood disorder, ongoing tobacco abuse, irritable bowel syndrome Procedures: CTA CHEST: 1. No definite evidence for pulmonary embolus. 2. A 6 mm groundglass nodule within the left lower lobe. Please refer to the chart below for recommended follow-up. 3. A 3.8 cm right adrenal benign adenoma. 4. Mild interstitial thickening at the lung apices and mild bronchial wall thickening. There is also a few linear and patchy densities within the right lower lobe. This could be due to chronic change or change mild pneumonitis. Please refer to below summary of Fleischner criteria recommendations for follow-up of incidental CT nodules (Apurva Martinez, Guidelines for management of small pulmonary nodules detected on CT scans: A statement from the Fleischner Society, Radiology 237: [phone].) SOLID NODULES Solitary nodule size: <6 mm * Low risk patients: no follow-up needed * high risk patients: optional CT at 12 months Solitary nodule size: 6-8 mm * Low risk patients: follow-up at 6-12 months, then consider further follow-up at 18-24 months * high risk patients: initial follow-up CT at 6-12 months and then at 18-24 months if no change Solitary nodule size: >8 mm * either low or high risk patients - consider follow-up CT at 3 months, and/or CT-PET, and/or biopsy Multiple nodules size: <6 mm * Low risk patients: no routine follow-up * high risk patients: optional CT at 12 months Multiple nodules size: 6-8 mm * Low risk patients: follow-up at 3-6 months, then consider further follow-up at 18-24 months * high risk patients: follow-up at 3-6 months, then at 18-24 months if no change Multiple nodules size: >8 mm * Low risk patients: follow-up at 3-6 months, then consider further follow-up at 18-24 months * high risk patients: follow-up at 3-6 months, then at 18-24 months if no change Note: newly detected indeterminate nodule in persons 35 years of age or older. * Low risk patients: minimal or absent history of smoking and/or other known risk factors * high risk patients: history of smoking or of other known risk factors (e.g. first degree relative with lung cancer, or exposure to asbestos, radon, uranium) * if a nodule up to 8 mm is partly solid or is ground glass further follow-up is required after 24 months to exclude possible slow growing adenocarcinoma (ALISON) SUBSOLID NODULES Solitary pure ground-glass nodule * nodule size <6 mm - no CT follow-up required * nodule size >=6 mm - follow-up CT at 6-12 months, then every 2 years until 5 years Solitary part-solid nodule * nodule size <6 mm - no CT follow-up required * nodule size >=6 mm - follow-up CT at 3-6 months. If unchanged, and solid component remains <6 mm, then annual follow-up for 5 years Multiple subsolid nodules * nodule size <6 mm - follow-up CT at 3-6 months, consider further follow-up at 2 and 4 years if stable * nodule size >=6 mm - follow-up CT at 3-6 months, subsequent management based on the most suspicious nodule(s) ECHO: The left ventricle is normal in size. * There is borderline concentric left ventricular hypertrophy. * The left ventricular wall motion is normal. * Left ventricular systolic function is normal. * Ejection Fraction = 60-65% EEG UNREMARKABLE Medication Reconciliation New Medications: Albuterol Hfa (Ventolin Hfa) 200 Puffs/13451 Mcg Aers 2 PUFFS INH Q4 PRN for SOB/Wheezing, #1 INHALER 2 Refills Azithromycin (Zithromax) 250 Mg Tab 250 MG PO DAILY, #4 TAB Cefuroxime Axetil (Cefuroxime Axetil) 500 Mg Tab 1 TAB PO BID for 5 Days, #10 TAB Prednisone Tab (Prednisone) 10 Mg Tab 30 MG PO UD, #12 TAB PREDNSIONE 30MG PO DAILY X 2 DAYS THEN PREDNSIONE 20MG PO DAILY X 2 DAYS THEN PREDNSIONE 10MG PO DAILY X 2 DAYS THEN STOP Guaifenesin Ext Rel (Mucinex Ext Rel) 600 Mg Tabcr 600 MG PO Q12, #10 Continued Medications: Omeprazole (Prilosec) 20 Mg Capcr 20 MG PO DAILY, CAP Discontinued Medications: Ibuprofen-Diphenhydramine Citr (Advil Pm) 1 Tab Tab 1 TAB PO DIRECTED Admission Information HPI (per Admitting provider): Hx obtained from patient and records. Medical history significant for reflux, mood disorder, ongoing tobacco abuse, irritable bowel syndrome. Last few days, patient noted cough symptoms, dry, unable to expectorate, possible sick contacts at work. No chest pain. Appetite okay. Denies aspiration but admits to some cough symptoms especially at night in supine position. Last night, she woke up feeling funny with sweats, nausea, headache, increasing shortness of breath. Two syncopal episodes, unwitnessed, no incontinence, no tongue biting. Remembers a funny feeling before passing out. Patient was found at home by his son, noted to have bruising on the left knee. Initially hypotensive in the ER, SBP 80s. Patient given NSS, Levaquin and Zosyn for sepsis Physical Exam (per Admitting): VITAL SIGNS: Blood pressure was noted to be 82/50 later 100/70, pulse rate noted to be 94, respiratory rate 20, temperature 35.8, sats 93% on room air. GENERAL: Noted to be slightly anxious, no respiratory distress, obese. SKIN: Normal color. HEENT: [place] palpebral conjunctivae. Dry mucosa. NECK: Short neck. LUNGS: occ wheeze. HEART: Regular rate and rhythm. ABDOMEN: Soft. EXTREMITIES: Minimal LE edema, no tenderness, some bruising on the left knee. NEUROLOGIC: No gross focality. Hospital Course 1. Acute hypoxemic respiratory failure secondary to complicated bronchitis/ atypical pneumonia, possible sepsis secondary to above. hx of smoking on iv Rocephin and doxycycline po prednisone and nebs improved discharged on po cefuroxime and azithromycin prednisone taper and albuterol prn needs f/u with pcp 3. Syncope, likely secondary to orthostasis, low blood pressure due to illness. echo unremarkable. EEG unremarkable stable. No more epsiodes needs f/u with pcp 4. Ongoing tobacco abuse.Smoking cessation counselling. 5. Hyperglycemia, hba1c 5.9 will monitor Blood sugars while on prednisone advised ada diet Discharged home Total time spent on discharge = 35MINUTES This includes examination of the patient, discharge planning, medication reconciliation, and communication with other providers. Discharge Instructions Please take this sheet to every appointment for the next month Discharge Instructions Date of Service Dec 18, 2016. Admission Reason for Admission: Respiratory Failure, Acute Discharge Discharge Diagnosis / Problem: ACUTE RESP FAILUE, SEPSIS? Discharge Goals Goal(s): Decrease discomfort, Improve function Activity Recommendations Activity Limitations: resume your previous activity . Instructions / Follow-Up Instructions / Follow-Up FOLLOWUP WITH FAMILY DOCTOR IN ONE WEEK. STRONGLY ADVISE FOR SMOKING CESSATION. SLEEP STUDY AND STRESS PER FAMILY DOCTOR. BORDERLINE DIABETES- TRY TO FOLLOW DIABETIC DIET( LOW CARB DIET) AND REGULAR EXERCISE. CT CHEST IN 6 MONTHS WITH FAMILY DOCTOR REFERRAL FOR LUNG NODULE. Current Hospital Diet Patient's current hospital diet: AHA Diet (Heart Healthy) Discharge Diet Recommended Diet: AHA Diet (Heart Healthy), Diabetes Type 2 Diet Pending Studies Studies pending at discharge: no Laboratory Results Hemoglobin A1c Test 12/16/16 00:15 Range/Units Estimated Average Glucose 123 mg/dl Hemoglobin A1c 5.9 H 4.5-5.6 % Work Instructions Return To Work: 1 day Additional Instructions: CAN GO TO WORK ON 2016 Medical Emergencies . Who to Call and When: Medical Emergencies: If at any time you feel your situation is an emergency, please call 911 immediately. . Non-Emergent Contact Non-Emergency issues call your: Primary Care Provider . . "Provider Documentation" section prepared by Marlon Jefferson. . VTE Core Measure Inpt VTE Proph given/why not?: Enoxaparin (Lovenox)SQ
== END 2016-12-18 13:44 | disposition home or self-care (01) | DRG 871 ==
LOC: C.EDB 23:56 → C.MED 12-16 03:22 → ENRESERV 12-16 03:50
PROVIDERS: ADMIT Internal Medicine; ATTEND Internal Medicine
DX: A41.9 Sepsis, unspecified organism (principal); J18.9 Pneumonia, unspecified organism; J96.01 Acute respiratory failure with hypoxia; I95.1 Orthostatic hypotension; R73.9 Hyperglycemia, unspecified; K21.9 Gastro-esophageal reflux disease without esophagitis; F17.210 Nicotine dependence, cigarettes, uncomplicated; Z79.899 Other long term (current) drug therapy

== ENCOUNTER → 2017-07-23 | Outpatient (CLI) | payer OTHER ==
[~2017-07-23] MED LIST: GFNSR600 PO; PRLSR20 PO; VNTHFA/IN INH
--- NOTE | 2017-07-23 10:59 | DIAGNOSTIC IMAGING REPORT ---
CT OF THE CHEST WITH IV CONTRAST CLINICAL HISTORY: Pulmonary nodule. COMPARISON STUDY: Chest CT December 16, 2016. TECHNIQUE: Following IV administration of 83 mL of Optiray-[id number], helical axial images of the chest were obtained. Sagittal and coronal reconstructions were viewed as well as maximal intensity projections on an independent 3-D workstation. A dose lowering technique was utilized adhering to the principles of ALARA. CT DOSE: 712.00 mGy.cm FINDINGS: No enlarged axillary, mediastinal or hilar lymph nodes are present. The size of the heart is normal. There is mild dilatation of the main pulmonary artery which measures 3.1 cm. There is no pneumothorax. No pleural effusion is noted. Scattered subpleural opacities are similar to exam of December 17, 2016. A 6 mm subpleural left lower lobe irregular nodule shown on image 142 of 316 is unchanged. Fine centrilobular nodules throughout the lungs are noted. There is mild bronchial wall thickening. Interlobular septal thickening is noted within the right lung apex. No suspicious osseous lesions are present. A left renal cyst is noted as well as a low-attenuation right adrenal nodule which is benign. There is probable fatty infiltration of the liver. Gallbladder is surgically absent. IMPRESSION: 1. No change in a 6 mm irregular subpleural nodule within the left lower lobe since chest CT of December 16, 2016. Additional scattered subpleural opacities are similar to prior exam. These are probably benign however remain indeterminate and a follow-up chest CT in 6 month to ensure stability is recommended. 2. Fine centrilobular nodules throughout the lungs with scattered subpleural opacities and a few areas of intralobular septal thickening. These findings are nonspecific although could reflect respiratory bronchiolitis interstitial lung disease or hypersensitivity pneumonitis. 3. Mild dilatation of the central pulmonary arteries which raises the possibility of pulmonary arterial hypertension. Electronically signed by: Ramon Nowak M.D. 07/23/2017 10:57 AM Dictated Date/Time: 07/23/2017 10:42 AM
== END | disposition home or self-care (01) ==
LOC: C.CTS 09:40
PROVIDERS: ATTEND Physician Assistant Medical
DX: R91.1 Solitary pulmonary nodule (principal)

== ENCOUNTER → 2017-11-30 | Outpatient (CLI) | payer OTHER | END | disposition home or self-care (01) | LOC: C.PAPS 12:55 | PROVIDERS: ATTEND Internal Medicine | DX: Z00.00 Encounter for general adult medical examination without abnormal findings (principal) ==

== ENCOUNTER 2020-04-18 22:25 | Observation (INO) ==
--- OUTSIDE RECORDS SUMMARY | 2020-04-18 22:29 | External Medical Summary | Continuity of Care Document ---
:1965 Author Name Félix Mitchell, Provider Address Unavailable Unavailable , Care Team Providers Name Role Phone Megan Wagner Unavailable [email or web address] David M.D., [email or web address] Jude DAVID M.D. Unavailable Unavailable Unavailable Unavailable Unavailable Assessments Assessed Problems:Tick bite of left lower leg Problems Syncope (780.2) (R55) Irritable bowel syndrome (564.1) (K58.9) Shortness of breath (786.05) (R06.02) Acid reflux (530.81) (K21.9) Anxiety (300.00) (F41.9) Depression (311) (F32.9) Atypical pneumonia (486) (J18.9) Breast density (611.79) (R92.2) Tobacco abuse (305.1) (Z72.0) Skin lesion (709.9) (L98.9) Hyperglycemia (790.29) (R73.9) Abnormal glucose (790.29) (R73.09) Mood disorder (296.90) (F39) Fatigue (780.79) (R53.83) Class 1 obesity with serious comorbidity and body mass index (BMI) of 33.0 to 33.9 in adult, unspecified obesity type (278.00) (E66.9) Abnormal CT scan of lung (793.19) (R91.8) Pulmonary nodule (793.11) (R91.1) Pre-diabetes (790.29) (R73.03) Adrenal nodule (255.8) (E27.8) Bacterial vaginosis (616.10) (N76.0) Acute sinusitis (461.9) (J01.90) Tick bite of left lower leg (916.4) (S80.862A) Allergies and Adverse Reactions No Known Drug Allergies (Allergy) Medications Ventolin HFA 108 (90 Base) MCG/ACT Inhal ation Aerosol Solution; INHALE 2 PUFFS Every 4 hours PRN SOB / wheezing Refills: 0 PriLOSEC OTC 20 MG Oral Tablet Delayed Release; TAKE 1 TABLE T DAILY. Start: 31-Dec-2016 Refills: 0 metroNIDAZOLE 500 MG Oral Tablet; TAKE 1 TABLET TWICE DAILY UNTIL FINISHED. Paula David Start: 09-Dec-2017 Quantity: 14 Refills: 0 Procedures History of gallbladder surgery Status: C ompleted History of tumor excision Status: Comple vera Immunizations Fluzone INJ On: 28-Jan-2016 Lot #: [id number], [employer] Pneumovax 23 25 MCG/0.5ML Injection Injectable On: 01-Jan-20 17 17:08 Lot #: [id number], [employer] & DOHME Tdap (Adacel) On: 30-Nov-2017 11:01 Lot #: [id number], [employer] Family History Brother Family history of Alcohol abuse (305.00) (F10.10) Status: Ac tive Father Family history of pancreatic cancer (V16.0) (Z80.0) Status: Active Family history of lung disease (V19.8) (Z83.6) Status: Activ e Grandmother Family history of malignant neoplasm of breast (V16.3) (Z80. 3) Status: Active Mother Family history of coronary artery disease (V17.3) (Z82.49) S tatus: Active Social History - Smoking Status Smokes tobacco daily Smoker Interventions Discussion/Summary1.) Tick bite to left inner knee area: Patient with tick bite to left inner knee area - believed to have occurred this past Wednesday. Patient without excessive fatigue, joint/muscle aches, fever, or headaches. Localized redness surrounding bite without evidence of erythema migrans. Patient does not meet prophylaxis criteria for Doxycycline. Discussed in detail signs/symptoms for patient to monitor for. Discussed that Lyme screening can be performed 4-6 weeks post bite. Patient requesting Lyme screen - ordered today. Follow-up pending results of test. Patient to call with changes in symptoms. Follow-up as needed with PCP. Call or return to PCP office with new or worsening symptoms. Plan of Treatment Planned Observations Planned Goals not documented Results No Known Results Results not documented Encounters Appointment; Megan Lechuga CRNP 02-Sep-2018 16:20 Encounter Diagnosis: Problem not documented
--- OUTSIDE RECORDS SUMMARY | 2020-04-18 22:29 | External Medical Summary | Continuity of Care Document ---
:1965 Author Name Félix Mitchell, Provider Address Unavailable Unavailable , Care Team Providers Name Role Phone Megan Wagner Unavailable [email or web address] David M.D., [email or web address] Jude DAVID M.D. Unavailable Unavailable Unavailable Unavailable Unavailable Assessments Assessed Problems:Tick bite of left lower leg Problems Hyperglycemia (790.29) (R73.9) Skin lesion (709.9) (L98.9) Tobacco abuse (305.1) (Z72.0) Breast density (611.79) (R92.2) Atypical pneumonia (486) (J18.9) Depression (311) (F32.9) Anxiety (300.00) (F41.9) Syncope (780.2) (R55) Tick bite of left lower leg (916.4) (S80.862A) Abnormal glucose (790.29) (R73.09) Acid reflux (530.81) (K21.9) Shortness of breath (786.05) (R06.02) Irritable bowel syndrome (564.1) (K58.9) Acute sinusitis (461.9) (J01.90) Bacterial vaginosis (616.10) (N76.0) Adrenal nodule (255.8) (E27.8) Pre-diabetes (790.29) (R73.03) Pulmonary nodule (793.11) (R91.1) Abnormal CT scan of lung (793.19) (R91.8) Class 1 obesity with serious comorbidity and body mass index (BMI) of 33.0 to 33.9 in adult, unspecified obesity type (278.00) (E66.9) Fatigue (780.79) (R53.83) Mood disorder (296.90) (F39) Allergies and Adverse Reactions No Known Drug Allergies (Allergy) Medications PriLOSEC OTC 20 MG Oral Tablet Delayed Release; TAKE 1 TABLE T DAILY. Start: 31-Dec-2016 Refills: 0 Ventolin HFA 108 (90 Base) MCG/ACT Inhal ation Aerosol Solution; INHALE 2 PUFFS Every 4 hours PRN SOB / wheezing Refills: 0 metroNIDAZOLE 500 MG Oral Tablet; TAKE 1 TABLET TWICE DAILY UNTIL FINISHED. Paula David Start: 09-Dec-2017 Quantity: 14 Refills: 0 Procedures History of gallbladder surgery Status: C ompleted History of tumor excision Status: Comple vera Immunizations Fluzone INJ On: 28-Jan-2016 Lot #: [id number], [employer] Pneumovax 23 25 MCG/0.5ML Injection Injectable On: 01-Jan-20 17 17:08 Lot #: [id number], [employer] Tdap (Adacel) On: 30-Nov-2017 11:01 Lot #: [id number], [employer] Family History Brother Family history [...]
[2020-04-18] MEDS ORDERED: ASPIRIN CHEW 324 MG PO STA (22:39)
[2020-04-18] MEDS ORDERED: dilTIAZem HCl 5 MG/ML 5 ML VIAL IV STA ×2 (22:42→22:51)
[2020-04-18] MEDS ORDERED: STAT IV Infusion **Titration per Protocol STA (22:44)
[2020-04-18] MEDS ORDERED: dilTIAZem HCl 5 MG/ML 5 ML VIAL IV ONE (22:44)
[2020-04-18] MEDS ORDERED: SODIUM CHLORIDE 0.9% 1000ML 1,000 ML IV SCH (22:45)
[2020-04-18] MEDS ORDERED: OPTIRAY 320 125ml IV ONE (22:47)
[2020-04-18] MEDS: dilTIAZem HCL 125 MG in DEXTROSE 5% 100 ML IV SCH (22:55)
[2020-04-18] MEDS ORDERED: LORazepam 1 MG/2 ML VIAL IV STA (22:57)
[2020-04-18] MEDS ORDERED: LORazepam 2 MG/4 ML VIAL ONE (22:58)
[2020-04-18 23:03] LABS: Mean Corpuscular Hgb Conc 33.7 g/dL (32-36); Mean Platelet Volume 10.5 fL (7.4-10.4); Platelet Count 332 K/uL (130-400)
[2020-04-18 23:09] LABS: iSTAT Hemoglobin 15.6 g/dl (12.0-16.0); iSTAT Ionized Calcium 1.08 mmol/l (1.12-1.32); iSTAT Potassium 3.5 mmol/L (3.3-5.0)
[2020-04-18] MEDS ORDERED: METOPROLOL TARTRATE 1 MG/ML VIAL IV ONE (23:12)
[2020-04-18] MEDS ORDERED: METOPROLOL TARTRATE 1 MG/ML VIAL IV STA (23:12)
[2020-04-18 23:21] LABS: Partial Thromboplastin Ratio 0.9; Partial Thromboplastin Time 25.4 Seconds (21.0-31.0); Prothrombin Time 10.3 Seconds (9.0-12.0)
--- NOTE | 2020-04-18 23:37 | Emergency Department Note ---
History of Present Illness General Chief complaint: Illness Stated complaint: SYNCOPE,SOB,COLD SWEATS Time Seen by Provider: 04/18/20 22:35 History of Present Illness Provider complaint: Syncope Onset (ago): day(s) 1 Location: head and chest Maximum Pain Intensity: 2 Current Pain Intensity: 0 Associated symptoms: + headaches, + shortness of breath and + syncope; no chest pain and no fever/chills 54-year-old female presents emergency department for syncope. Patient states she was walking out her of her restroom this evening when she felt really cold and then passed out and landed on the floor. She states she is not sure if she hit her head. She reports some mild difficulty breathing. She denies any chest pain. She reports no loss of taste or smell. No fevers. No recent travel. No exposure to anyone who is COVID-19 positive or person of interest. Home Medications Medication Instructions Recorded Confirmed Type omeprazole 20 mg PO DAILY 04/18/20 04/18/20 History Allergies Allergy/AdvReac Type Severity Reaction Status Date / Time No Known Allergies Allergy Unverified 04/18/20 23:07 Past Med/Surg History Medical History (Updated 04/19/20 @ 00:19 by Say Delong) HTN (hypertension) No pertinent family history Respiratory failure, acute Surgical History (Updated 04/19/20 @ 00:12 by Say Delong) No pertinent past surgical history Social History Smoking Status: Current every day smoker Cigarettes Per Day: 20; Feels Safe at Home: Yes Review of Systems A total of 10 systems reviewed and were otherwise negative Physical Exam Vital Signs Vital Signs - 24 hr 04/18/20 22:30 04/18/20 22:41 04/18/20 22:44 Temperature 37.0 C Temperature Source Temporal Artery Scan Pulse Rate 156 H 173 H 176 H Pulse Rate from SpO2 Sensor 137 H Pulse Rhythm Regular Pulse Strength Normal Respiratory Rate 20 25 H 25 H Respiratory Effort / Characteristics Non-Labored Spontaneous Respiratory Depth Normal Blood Pressure 116/78 148/107 H Blood Pressure Mean 90 121 Blood Pressure Position Sitting Pulse Oximetry 96 97 Oxygen Delivery Method Room Air Sepsis Recent Fever Within 48 Hours No Sepsis New/Unexplained Change in Mental Status No Sepsis Action Taken by Nursing No Action Required 04/18/20 22:50 04/18/20 22:51 04/18/20 22:54 Temperature Temperature Source Pulse Rate 151 H 163 H 130 H Pulse Rate from SpO2 Sensor Pulse Rhythm Pulse Strength Respiratory Rate 25 H 19 23 Respiratory Effort / Characteristics Respiratory Depth Blood Pressure 156/93 H 120/83 Blood Pressure Mean 121 91 Blood Pressure Position Pulse Oximetry Oxygen Delivery Method Sepsis Recent Fever Within 48 Hours Sepsis New/Unexplained Change in Mental Status Sepsis Action Taken by Nursing 04/18/20 23:00 04/18/20 23:01 04/18/20 23:15 Temperature Temperature Source Pulse Rate 153 H 147 H 143 H Pulse Rate from SpO2 Sensor Pulse Rhythm Pulse Strength Respiratory Rate 27 H 22 30 H Respiratory Effort / Characteristics Respiratory Depth Blood Pressure 137/98 136/102 H Blood Pressure Mean 112 104 Blood Pressure Position Pulse Oximetry Oxygen Delivery Method Sepsis Recent Fever Within 48 Hours Sepsis New/Unexplained Change in Mental Status Sepsis Action Taken by Nursing 04/18/20 23:16 04/18/20 23:46 04/18/20 23:48 Temperature Temperature Source Pulse Rate 156 H 126 H Pulse Rate from SpO2 Sensor 126 H Pulse Rhythm Pulse Strength Respiratory Rate 37 H Respiratory Effort / Characteristics Respiratory Depth Blood Pressure 136/102 H 105/67 Blood Pressure Mean 79 Blood Pressure Position Pulse Oximetry 96 95 Oxygen Delivery Method Room Air Room Air Sepsis Recent Fever Within 48 Hours Sepsis New/Unexplained Change in Mental Status Sepsis Action Taken by Nursing 04/19/20 00:00 04/19/20 00:15 04/19/20 00:30 Temperature Temperature Source Pulse Rate 137 H 129 H 130 H Pulse Rate from SpO2 Sensor 120 H 122 H 109 H Pulse Rhythm Pulse Strength Respiratory Rate 25 H 24 20 Respiratory Effort / Characteristics Respiratory Depth Blood Pressure 98/65 L 82/62 L 90/57 L Blood Pressure Mean 68 67 79 Blood Pressure Position Pulse Oximetry 95 93 94 Oxygen Delivery Method Sepsis Recent Fever Within 48 Hours Sepsis New/Unexplained Change in Mental Status Sepsis Action Taken by Nursing Physical Exam GENERAL: She is oriented to person, place, and time. She appears well-developed and well-nourished. She does not appear distressed. HENT: Exam performed. -Head: Normocephalic and atraumatic. -Right Ear: External ear normal. No mastoid tenderness. -Left Ear: External ear normal. No mastoid tenderness. -Mouth/Throat: The oropharynx is clear and moist. No trismus in the jaw. No dental abscesses or uvula swelling. No oropharyngeal exudate or tonsillar abscesses. EYES: Conjunctivae and EOM are normal. Pupils are equal, round, and reactive to light. Right eye exhibits no discharge. Left eye exhibits no discharge. No scleral icterus. NECK: Normal range of motion. Neck supple. No JVD present. No spinous process tenderness present. No carotid bruit present. No rigidity. No tracheal deviation and normal range of motion present. No Brudzinski's sign and no Kernig's sign noted. CV: Tachycardic rate, irregular rhythm, normal heart sounds and intact distal pulses. There is no peripheral edema. Palpable radial pulses bue. PULM/CHEST: Effort normal and breath sounds normal. No respiratory distress. No stridor. She has no wheezes. She has no rales. -Chest Wall: She exhibits no tenderness. ABD: The abdomen is soft. Bowel sounds are normal. She has no distension. No mass is present. There is no tenderness. There is no rebound, no guarding, no Johnson's sign and no tenderness at McBurney's point. Rovsig negative MUSC/SKEL: Normal range of motion. There is no peripheral edema, tenderness or deformity. LYMPH: No cervical adenopathy. NEURO: She is alert and oriented to person, place, and time. She has normal strength. No cranial nerve deficit or sensory deficit. Coordination and gait normal. GCS eye subscore is 4. GCS verbal subscore is 5. GCS motor subscore is 6. Cerebellar tests wnl. SKIN: Skin is warm and dry. She is not diaphoretic. PSYCH: She has a normal mood and affect. Behavior is normal. Judgment and t hought content normal. Course Course 2234: The patient was evaluated in room A3. A complete history and physical exam was performed. Patient was mainly seen in room A3. Patient was placed on cardiac/vascular sonographer where she was found to be in A. fib RVR with heart rate between 150-190. Large-bore IV access was obtained. Normal saline bolus was started. Cardizem 20 mg bolus was given. This improved the patient's heart rate mildly into the 150-170 rate. A repeat Cardizem bolus of 25 mg was given which again improved the patient's heart rate into the 120-140 rate. Patient was given Ativan 1 mg. She will be started on a Cardizem drip. Despite being on the Cardizem drip, the patient remained in atrial fibrillation with rapid ventricular rate anywhere from 120-150. Cardiac monitoring: An order was placed for continuous cardiac monitoring. The monitor shows a rate of 150-170 with atrial fibrillation rhythm 2300: Patient remains in atrial fibrillation with a rapid ventricular rate between 120-145 despite Cardizem drip being maxed out. At this time we made the decision to switch to metoprolol boluses. Before given the metoprolol bolus the patient was asked if she ingested any cocaine or crack cocaine. She states she did not use any form of cocaine however she is now admitting that prior to passing out she did smoke marijuana from her friend. She states she it was from her friend and she is pretty sure it was just marijuana and that she did not have any cocaine laced in the marijuana. Metoprolol 5 mg bolus was given which improved the patient's heart rate into the 110-120 range. Patient be taken for CT of the chest rule out PE. 0015: Vital signs stable. Patient's heart rate is ranging between 115-130. Her chest x-ray is negative. CT of the chest and head are within normal limits. No PE or ICH. Patient has a leukocytosis of 19.8. Patient is afebrile. Is not thought that the patient is suffering from any infection and that the leukocytosis could be reactive due to the patient's reported marijuana and drug use tonight. Again patient denies any cocaine ingestion. Patient will be given repeat doses of Ativan. [facility]. Administered Medications Diltiazem HCl 125 mg/ Dextrose 125 mls @ 5 mls/hr IV .Q24H [facility]; Protocol Stop: 05/18/20 22:44 Last Titration: 04/18/20 23:08 Dose: 15 mg/hr, 15 mls/hr Documented by: [id number] Cosigned by: [id number] Titration: 04/18/20 23:00 Dose: 10 mg/hr, 10 mls/hr Documented by: [id number] Cosigned by: [id number] Admin: 04/18/20 22:55 Dose: 5 mg/hr, 5 mls/hr Documented by: [id number] Cosigned by: [id number] Sodium Chloride (Nss 1000ml) 1,000 mls @ 125 mls/hr IV .Q8H [facility] Stop: 05/19/20 00:29 Last Admin: 04/19/20 00:35 Dose: 125 mls/hr Documented by: [id number] Sodium Chloride (Nss 1000ml) 1,000 mls @ 999 mls/hr IV .Q1H1M ONE Stop: 04/19/20 01:26 Last Admin: 04/19/20 00:32 Dose: 999 mls/hr Documented by: [id number] Discontinued Medications Aspirin (Aspirin Chew 324 Mg) 324 mg PO NOW STA Stop: 04/18/20 22:40 Last Admin: 04/18/20 23:02 Dose: 324 mg Documented by: [id number] Diltiazem HCl (Diltiazem Hcl 5 Mg/Ml 5 Ml Vial) 20 mg IV NOW STA Stop: 04/18/20 22:43 Last Admin: 04/18/20 22:48 Dose: 20 mg Documented by: [id number] Cosigned by: [id number] Diltiazem HCl (Diltiazem Hcl 5 Mg/Ml 5 Ml Vial) Confirm Administered Dose 25 mg IV .STK-MED ONE Stop: 04/18/20 22:45 Last Admin: 04/18/20 23:04 Dose: Not Given Documented by: [id number] Diltiazem HCl (Diltiazem Hcl 5 Mg/Ml 5 Ml Vial) 25 mg IV NOW STA Stop: 04/18/20 22:52 Last Admin: 04/18/20 22:54 Dose: 25 mg Documented by: [id number] Cosigned by: [id number] Sodium Chloride (Nss 1000ml) 1,000 mls @ 999 mls/hr IV .Q1H1M [facility] Stop: 04/18/20 23:45 Last Infusion: 04/19/20 00:05 Dose: 0 mls/hr Documented by: [id number] Admin: 04/18/20 23:02 Dose: 999 mls/hr Documented by: [id number] Lorazepam (Ativan) 1 mg in 2 mls @ 2 mls/min IV NOW STA Stop: 04/18/20 22:58 Last Admin: 04/18/20 23:03 Dose: Not Given Documented by: [id number] Lorazepam (Ativan) 1 mg in 2 mls @ 2 mls/min IV NOW STA Stop: 04/19/20 00:07 Last Admin: 04/19/20 00:11 Dose: 2 mls/min Documented by: [id number] Ioversol (Optiray 320 125ml) 120 ml IV ONCE ONE Stop: 04/18/20 22:48 Last Admin: 04/18/20 22:47 Dose: 120 ml Documented by: [id number] Lorazepam (Lorazepam 2 Mg/4 Ml Vial) Confirm Administered Dose 2 mg .ROUTE .STK- MED ONE Stop: 04/18/20 22:59 Last Increment: 04/18/20 23:02 Dose: 1 mg Documented by: [id number] Metoprolol Tartrate (Metoprolol Tartrate 1 Mg/Ml Vial) Confirm Administered Dose 10 mg IV .STK-MED ONE Stop: 04/18/20 23:13 Last Admin: 04/18/20 23:52 Dose: Not Given Documented by: [id number] Metoprolol Tartrate (Metoprolol Tartrate 1 Mg/Ml Vial) 5 mg IV NOW STA Stop: 04/18/20 23:13 Last Admin: 04/18/20 23:16 Dose: 5 mg Documented by: [id number] Miscellaneous (Stat Iv Infusion Titration Per Protocol) 1 ea N/A NOW STA Stop: 04/18/20 22:45 Last Admin: 04/18/20 23:53 Dose: Not Given Documented by: [id number] Critical Care Time Critical Care Time: Yes Total Critical Care Time: 52 I have personally spent greater than 52 minutes of critical care time in the direct management of this patient. This includes bedside care, interpretation of diagnostic studies, and testing, discussion with consultants, patient, and family members, and other required patient management activities. This 52 minutes is in excess of all separately billable procedures. Medical Decision Making Laboratory Data Result diagrams: 04/18/20 22:45 04/18/20 22:45 Lab Results 04/18/20 04/18/20 04/18/20 Range/Units 22:45 22:45 22:45 WBC 19.81 H (4.8-10.8) K/uL RBC 5.26 (4.2-5.4) M/uL Hgb 15.4 (12.0-16.0) g/dL POC Hgb (12.0-16.0) g/dl Hct 45.7 (37-47) % POC Hct (37-47) % MCV 86.9 (80-100) fL MCH 29.3 (25-34) pg MCHC 33.7 (32-36) g/dL RDW Std Deviation 41.4 (36.4-46.3) fL RDW Coeff of Taya 13.0 (11.5-14.5) % Plt Count 332 (130-400) K/uL MPV 10.5 H (7.4-10.4) fL Immature Gran % (Auto) 0.3 % Neut % (Auto) 70.6 % Lymph % (Auto) 23.4 % Frio % (Auto) 4.7 % Eos % (Auto) 0.8 % Baso % (Auto) 0.2 % Neut # (Auto) 13.98 H (1.4-6.5) K/uL Lymph # (Auto) 4.64 H (1.2-3.4) K/uL Frio # (Auto) 0.94 H (0.11-0.59) K/uL Eos # (Auto) 0.15 (0-0.5) K/uL Baso # (Auto) 0.04 (0-0.2) K/uL Immature Gran # (Auto) 0.06 H (0.00-0.02) K/uL PT 10.3 (9.0-12.0) Seconds INR 1.0 (0.9-1.1) APTT 25.4 (21.0-31.0) Seconds PTT Ratio 0.9 POC Sodium (135-144) mmol/L Sodium 140 (136-145) mmol/L POC Potassium (3.3-5.0) mmol/L Potassium 3.5 (3.5-5.1) mmol/L POC Chloride (101-112) mmol/L Chloride 103 (98-107) mmol/L Carbon Dioxide 30 (21-32) mmol/L POC Total CO2 (24-31) mmol/L Anion Gap 7.0 (3-11) POC Anion Gap (16-25) mmol/L POC BUN (7-18) mg/dl BUN 15 (7-18) mg/dl Creatinine 0.97 (0.6-1.2) mg/dl POC Creatinine (0.6-1.3) mg/dl Est Cr Clr Drug Dosing 79.3 ml/min Est GFR ( Amer) 77.8 Est GFR (Non-Af Amer) 67.2 BUN/Creatinine Ratio 15.8 (10-20) Glucose 111 H (70-99) mg/dl POC Glucose (other) (70-99) mg/dl Calcium 9.1 (8.5-10.1) mg/dl POC Ioniz Calcium Yang (1.12-1.32) mmol/l Troponin I < 0.015 (0-0.045) ng/ml Lipase 282 (73-393) U/L SARS-CoV-2 Ag (Rapid) (Negative) 04/18/20 04/18/20 Range/Units 22:53 23:16 WBC (4.8-10.8) K/uL RBC (4.2-5.4) M/uL Hgb (12.0-16.0) g/dL POC Hgb 15.6 (12.0-16.0) g/dl Hct (37-47) % POC Hct 46 (37-47) % MCV (80-100) fL MCH (25-34) pg MCHC (32-36) g/dL RDW Std Deviation (36.4-46.3) fL RDW Coeff of Taya (11.5-14.5) % Plt Count (130-400) K/uL MPV (7.4-10.4) fL Immature Gran % (Auto) % Neut % (Auto) % Lymph % (Auto) % Frio % (Auto) % Eos % (Auto) % Baso % (Auto) % Neut # (Auto) (1.4-6.5) K/uL Lymph # (Auto) (1.2-3.4) K/uL Frio # (Auto) (0.11-0.59) K/uL Eos # (Auto) (0-0.5) K/uL Baso # (Auto) (0-0.2) K/uL Immature Gran # (Auto) (0.00-0.02) K/uL PT (9.0-12.0) Seconds INR (0.9-1.1) APTT (21.0-31.0) Seconds PTT Ratio POC Sodium 140 (135-144) mmol/L Sodium (136-145) mmol/L POC Potassium 3.5 (3.3-5.0) mmol/L Potassium (3.5-5.1) mmol/L POC Chloride 102 (101-112) mmol/L Chloride (98-107) mmol/L Carbon Dioxide (21-32) mmol/L POC Total CO2 29 (24-31) mmol/L Anion Gap (3-11) POC Anion Gap 13.0 L (16-25) mmol/L POC BUN 16 (7-18) mg/dl BUN (7-18) mg/dl Creatinine (0.6-1.2) mg/dl POC Creatinine 1.0 (0.6-1.3) mg/dl Est Cr Clr Drug Dosing ml/min Est GFR ( Amer) Est GFR (Non-Af Amer) BUN/Creatinine Ratio (10-20) Glucose (70-99) mg/dl POC Glucose (other) 110 H (70-99) mg/dl Calcium (8.5-10.1) mg/dl POC Ioniz Calcium Yang 1.08 L (1.12-1.32) mmol/l Troponin I (0-0.045) ng/ml Lipase (73-393) U/L SARS-CoV-2 Ag (Rapid) Negative (Negative) Imaging Data Radiologist's Impression: CT SCAN OF THE BRAIN WITHOUT IV CONTRAST CLINICAL HISTORY: Fall. Syncope. COMPARISON STUDY: No priors. TECHNIQUE: Unenhanced axial CT scan of the brain is performed from the vertex to the skull base. A dose lowering technique was utilized adhering to the principles of ALARA. FINDINGS: Brain parenchyma: The brain parenchyma is normal in appearance. There is no hemorrhage, mass effect, or evidence of acute territorial ischemia by CT criteria. Kennedy-white matter differentiation is preserved. No extra-axial fluid collection is seen. Ventricles, sulci, cisterns: Normal in configuration. Intracranial vasculature: The visualized intracranial vasculature at the skull base is normal in appearance. Calvarium: There is no depressed calvarial fracture. Question a small osteochondroma arising from the left mandibular condyle on image #5. Sinuses and mastoids: The visualized paranasal sinuses are clear. The mastoid air cells are well pneumatized. Orbits: The bony orbits are grossly intact. IMPRESSION: No acute intracranial abnormality. ACT 112: Negative or not required by law. CT ANGIOGRAM OF THE CHEST CLINICAL HISTORY: Syncope. Dyspnea. COMPARISON STUDY: Chest x-ray dated 04/18/2020. Chest CT dated 07/23/2017. TECHNIQUE: Following the IV administration of 120 cc of Optiray 320, CT angiogram of the chest was performed from the upper abdomen to the thoracic inlet utilizing the pulmonary embolus protocol. Images are reviewed in the axial, sagittal, and coronal planes. 3-D MIPS images are created and assessed. IV contrast was administered without complication. A dose lowering technique was utilized adhering to the principles of ALARA. CT DOSE: 1496.41 mGy.cm FINDINGS: Thyroid: Imaged portions of the thyroid gland are normal in size and attenuation. Thoracic aorta: There is mild atherosclerotic calcification of the thoracic aorta, which is normal in caliber and demonstrates standard 3-vessel arch anatomy. No dissection is seen. Pulmonary vasculature: The pulmonary trunk is is dilated, measuring 3.6 cm in diameter. This suggests pulmonary artery hypertension. There are no filling defects within the main, lobar, or segmental pulmonary arteries to indicate pulmonary embolus. Heart: The heart is top normal in size and without pericardial effusion. Lungs and pleural spaces: Evaluation of the lung parenchyma is compromised by motion artifact. There is mild chronic elevation of the right hemidiaphragm. Foci of parenchymal scarring in the atelectasis seen at both lung bases is similar to previous. There is no airspace consolidation typical for pneumonia or pleural effusion. There is mild diffuse peribronchial thickening. The trachea and central airways are clear. Motion artifact degrades assessment for small pulmonary nodules. Mediastinum: There is no mediastinal lymphadenopathy. [place]: Clear. Axillae: There is no axillary lymphadenopathy. Upper abdomen: Cholecystectomy clips are noted. There is a tiny hiatal hernia. A 3.9 cm right adrenal adenoma is unchanged from previous. A 1.8 cm exophytic cyst is partially visualized arising from the upper pole of the left kidney. Skeletal structures: No lytic or blastic bony lesions are seen. There are healed right-sided rib fractures. IMPRESSION: 1. There is no evidence of pulmonary embolus in the main, lobar, or segmental pulmonary arteries. 2. There is no airspace consolidation or pleural effusion. 3. Mild diffuse peribronchial thickening suggests bronchitis/reactive airway disease. Clinical correlation will be required. 4. Foci of scarring/atelectasis at both lung bases is similar to previous. 5. Additional findings as above. ACT 112: Negative or not required by law. Electronically signed by: Yonis Campos M.D. 04/19/2020 12:04 AM Dictated: 04/18/202351 Transcribed: 04/18/202351 SINGLE VIEW CHEST CLINICAL HISTORY: Atypical chest pain. FINDINGS: An AP, portable, upright chest radiograph is compared to study dated 12/16/2016. Correlation is made with chest CT dated 07/23/2017. The examination is degraded by portable technique and patient rotation. The cardiomediastinal silhouette is unremarkable. There is mild chronic elevation of the right hemidiaphragm. There are bibasilar airspace opacities which are similar to previous. No large pleural effusion or pneumothorax is seen. The bony thorax is grossly intact. IMPRESSION: Bibasilar airspace opacities are similar to previous. This could represent scarring/atelectasis versus an infectious/inflammatory pneumonitis. Clinical correlation will be required. ACT 112: Negative or not required by law. Electronically signed by: Yonis Campos M.D. 04/19/2020 12:10 AM Dictated: 04/19/208 Transcribed: 04/19/208 ECG Data Additional Comments: EKG #1 at 2240: Atrial fibrillation with rate of 159. QRS [address] elevation or ST depression. EKG #2 at 2244: Atrial fibrillation with rate of 176. QRS 74 QTC of 373. No ST elevation or ST depression. EKG #3 at 2252 status post Cardizem 20 mg IV bolus: Atrial fibrillation with a rate of 158. QRS and QTc intervals within normal limits. No ST elevation or ST depression. EKG #4 at 2254: Atrial fibrillation with rate of 120. QRS and QTc intervals within normal limits. No ST elevation or ST depression. EKG #5 at 2322 status post metoprolol 5 mg IV bolus while on Cardizem drip: Atrial fibrillation with rate of 119. QRS and QTc intervals within normal limits. No ST elevation or ST depression. PVC present. MDM Narrative 2235: The patient was evaluated in room A3. A complete history and physical exam was performed. Patient was mainly seen in room A3. Patient was placed on cardiac/vascular sonographer where she was found to be in A. fib RVR with heart rate between 150-190. Large-bore IV access was obtained. Normal saline bolus was started. Cardizem 20 mg bolus was given. This improved the patient's heart rate mildly into the 150-170 rate. A repeat Cardizem bolus of 25 mg was given which again improved the patient's heart rate into the 120-140 rate. Patient was given Ativan 1 mg. She will be started on a Cardizem drip. Despite being on the Cardizem drip, the patient remained in atrial fibrillation with rapid ventricular rate anywhere from 120-150. Cardiac monitoring: An order was placed for continuous cardiac monitoring. The monitor shows a rate of 150-170 with atrial fibrillation rhythm 2300: Patient remains in atrial fibrillation with a rapid ventricular rate between 120-145 despite Cardizem drip being maxed out. At this time we made the decision to switch to metoprolol boluses. Before given the metoprolol bolus the patient was asked if she ingested any cocaine or crack cocaine. She states she did not use any form of cocaine however she is now admitting that prior to passing out she did smoke marijuana from her friend. She states she it was from her friend and she is pretty sure it was just marijuana and that she did not have any cocaine laced in the marijuana. Metoprolol 5 mg bolus was given which improved the patient's heart rate into the 110-120 range. Patient be taken for CT of the chest rule out PE. 0015: Vital signs stable. Patient's heart rate is ranging between 115-130. Her chest x-ray is negative. CT of the chest and head are within normal limits. No PE or ICH. Patient has a leukocytosis of 19.8. Patient is afebrile. Is not thought that the patient is suffering from any infection and that the leukocytosis could be reactive due to the patient's reported marijuana and drug use tonight. Again patient denies any cocaine ingestion. Patient will be given repeat doses of Ativan. [facility] been [facility]. Impression & Plan Atrial fibrillation with RVR, Cannabis abuse Discharge Plan Visit Data Chief Complaint: Illness Stated Complaint: SYNCOPE,SOB,COLD SWEATS ED Provider: Say Delong Discharge Problem: Atrial fibrillation with RVR, Cannabis abuse Patient Disposition: Admitted As Inpatient Forms Stand Alone Forms: My [facility] Prescriptions Prescriptions: No Action omeprazole 20 mg Tablet,Delayed Release (Dr/Ec) 20 mg PO DAILY RF: 0 Referrals Referrals: Danny David MD [Primary Care Provider] -
[2020-04-18 23:38] LABS: Basophils # (auto) 0.04 K/uL (0-0.2); Basophils % (auto) 0.2 %; Eosinophils # (auto) 0.15 K/uL (0-0.5); Eosinophils % (auto) 0.8 %; Hematocrit (blood only) 45.7 % (37-47); Hemoglobin 15.4 g/dL (12.0-16.0); Immature Granulocytes # (auto) 0.06 K/uL (0.00-0.02); Immature Granulocytes % (auto) 0.3 %; Lymphocytes # (auto) 4.64 K/uL (1.2-3.4); Lymphocytes % (auto) 23.4 %; Mean Corpuscular Hemoglobin 29.3 pg (25-34); Mean Corpuscular Volume 86.9 fL (80-100); Monocytes # (auto) 0.94 K/uL (0.11-0.59); Monocytes % (auto) 4.7 %; Neutrophils # (auto) 13.98 K/uL (1.4-6.5); Neutrophils % (auto) 70.6 %; RDW Standard Deviation 41.4 fL (36.4-46.3); Red Blood Count 5.26 M/uL (4.2-5.4); White Blood Count 19.81 K/uL (4.8-10.8)
[2020-04-18 23:47] LABS: BUN Creatinine Ratio 15.8 (10-20); Blood Urea Nitrogen 15 mg/dl (7-18); Calcium 9.1 mg/dl (8.5-10.1); Carbon Dioxide 30 mmol/L (21-32); Chloride 103 mmol/L (98-107); Creatinine Clr Calc Pharmacy 79.3 ml/min; Est GFR (African American) 77.8; Est GFR (Non-African American) 67.2; Glucose 111 mg/dl (70-99); Lipase 282 U/L (73-393); Potassium 3.5 mmol/L (3.5-5.1); Sodium 140 mmol/L (136-145); Troponin I < 0.015 ng/ml (0-0.045)
--- NOTE | 2020-04-18 23:54 | CT Scan Report ---
CT SCAN OF THE BRAIN WITHOUT IV CONTRAST CLINICAL HISTORY: Fall. Syncope. COMPARISON STUDY: No priors. TECHNIQUE: Unenhanced axial CT scan of the brain is performed from the vertex to the skull base. A d ose lowering technique was utilized adhering to the principles of ALARA. FINDINGS: Brain parenchyma: The brain parenchyma is normal in appearance. There is no hemorrhage, mass effect, or evidence of acute territorial ischemia by CT criteria. Kennedy-white matter differentiation is preser con. No extra-axial fluid collection is seen. Ventricles, sulci, cisterns: Normal in configuration. Intracranial vasculature: The visualized intracranial vasculature at the skull base is normal in appe arance. Calvarium: There is no depressed calvarial fracture. Question a small osteochondroma arising from the left mandibular condyle on image #5. Sinuses and mastoids: The visualized paranasal sinuses are clear. The mastoid air cells are well pneu matized. Orbits: The bony orbits are grossly intact. IMPRESSION: No acute intracranial abnormality. ACT 112: Negative or not required by law. Electronically signed by: Yonis Campos M.D. 04/18/2020 11:52 PM
--- NOTE | 2020-04-19 00:05 | CT Scan Report ---
CT ANGIOGRAM OF THE CHEST CLINICAL HISTORY: Syncope. Dyspnea. COMPARISON STUDY: Chest x-ray dated 04/18/2020. Chest CT dated 07/23/2017. TECHNIQUE: Following the IV administration of 120 cc of Optiray 320, CT angiogram of the chest was pe rformed from the upper abdomen to the thoracic inlet utilizing the pulmonary embolus protocol. Images are reviewed in the axial, sagittal, and coronal planes. 3-D MIPS images are created and assessed. I V contrast was administered without complication. A dose lowering technique was utilized adhering to the principles of ALARA. CT DOSE: 1496.41 mGy.cm FINDINGS: Thyroid: Imaged portions of the thyroid gland are normal in size and attenuation. Thoracic aorta: There is mild atherosclerotic calcification of the thoracic aorta, which is normal in caliber and demonstrates standard 3-vessel arch anatomy. No dissection is seen. Pulmonary vasculature: The pulmonary trunk is is dilated, measuring 3.6 cm in diameter. This suggests pulmonary artery hypertension. There are no filling defects within the main, lobar, or segmental pul monary arteries to indicate pulmonary embolus. Heart: The heart is top normal in size and without pericardial effusion. Lungs and pleural spaces: Evaluation of the lung parenchyma is compromised by motion artifact. There is mild chronic elevation of the right hemidiaphragm. Foci of parenchymal scarring in the atelectasis seen at both lung bases is similar to previous. There is no airspace consolidation typical for pneum onia or pleural effusion. There is mild diffuse peribronchial thickening. The trachea and central air ways are clear. Motion artifact degrades assessment for small pulmonary nodules. Mediastinum: There is no mediastinal lymphadenopathy. [place]: Clear. Axillae: There is no axillary lymphadenopathy. Upper abdomen: Cholecystectomy clips are noted. There is a tiny hiatal hernia. A 3.9 cm right adrenal adenoma is unchanged from previous. A 1.8 cm exophytic cyst is partially visualized arising from the upper pole of the left kidney. Skeletal structures: No lytic or blastic bony lesions are seen. There are healed right-sided rib frac tures. IMPRESSION: 1. There is no evidence of pulmonary embolus in the main, lobar, or segmental pulmonary arteries. 2. There is no airspace consolidation or pleural effusion. 3. Mild diffuse peribronchial thickening suggests bronchitis/reactive airway disease. Clinical correl ation will be required. 4. Foci of scarring/atelectasis at both lung bases is similar to previous. 5. Additional findings as above. ACT 112: Negative or not required by law. Electronically signed by: Yonis Campos M.D. 04/19/2020 12:04 AM
[2020-04-19] MEDS ORDERED: LORazepam 1 MG/2 ML VIAL IV STA (00:06)
--- NOTE | 2020-04-19 00:11 | XRay Report ---
SINGLE VIEW CHEST CLINICAL HISTORY: Atypical chest pain. FINDINGS: An AP, portable, upright chest radiograph is compared to study dated 12/16/2016. Correlation is made with chest CT dated 07/23/2017. The examination is degraded by portable technique and patient rotation. The cardiomediastinal silhouette is unremarkable. There is mild chronic elevation of the right hemidiaphragm. There are bibasilar airspace opacities which are similar to previous. No large p leural effusion or pneumothorax is seen. The bony thorax is grossly intact. IMPRESSION: Bibasilar airspace opacities are similar to previous. This could represent scarring/atele ctasis versus an infectious/inflammatory pneumonitis. Clinical correlation will be required. ACT 112: Negative or not required by law. Electronically signed by: Yonis Campos M.D. 04/19/2020 12:10 AM
[2020-04-19] MEDS ORDERED: SODIUM CHLORIDE 0.9% 1000ML 1,000 ML IV ONE (00:26)
[2020-04-19] MEDS ORDERED: SODIUM CHLORIDE 0.9% 1000ML 1,000 ML IV SCH (00:30)
--- NOTE | 2020-04-19 01:30 | History & Physical Report ---
Date of Service April 19, 2020 Assessment & Plan (1) Atrial fibrillation with RVR: 54yo C female presenting after syncopal event. Found to be in atrial fibrillation with RVR. Patient with no prior history of cardiac disease or arrhythmia. BP is stable at this time, patient asymptomatic. Slight improvement in rate with Cardizem. Patient with documented history of HTN on the chart, patient states she does not have HTN. Presently not on medications for HTN. Concerning that episode of syncope preceded discovery of new arrhythmia. ?substance induced arrhythmia in setting of recent marijuana use Last echo in 2017 with normal LV size, borderline concentric LVH, normal WM, EF 60-65%, no significant valvulopathy. -Admit to PCU -Check Mg, TSH -Check UTox -Check 2D echo -Repeat troponin x 1 with AM lab -Cardiology consultation appreciated -Metoprolol 25mg po BID -Continue Cardizem gtt for now -54yo female with history of HTN - [id number] points corresponding with 2.2% per year stroke risk. Patient is at moderate-high risk and should be considered for anticoagulation. Present on Admission?: Yes (2) Syncope: Patient with syncopal event at home. She did report some prodromal symptoms of lightheadedness. Denies CP/Palpitations preceding her syncopal event. She was diaphoretic upon waking then found to be in AF with RVR. ?if underlying arrhythmia contributed to syncopal event -Check orthostatic VS -Telemetry monitoring -Management of AF as above -2D echo ordered (?if this study will be delayed due to holiday). Last echo in 2017 with structurally normal heart Present on Admission?: Yes (3) GERD (gastroesophageal reflux disease): Chronic. Stable -Continue Omeprazole F/E/N - LR at 125mL/hr x 1 liter, Ca repletion, Check Mg and replete as needed, Regular diet as tolerated Ppx - Lovenox 40 Code - Full per discussion Dispo - Admit to PCU History of Present Illness Chief Complaint: Syncope, atrial fibrillation Primary Care Provider: Donal David MD Mariana Bronson is a 54yo female presenting after a syncopal event at home. Patient was in her usual state of health throughout the day. She went to a friend's house in the evening and smoked a small amount of marijuana. Afterwards she returned home. She was walking from her bathroom and became lightheaded and passed out around 21:30. She remembers waking up on the floor and being diaphoretic. She does not know how long she was down. Denies head trauma, neck pain, chest pain, palpitations, numbness, weakness, DAVE preceding or following the syncopal event. Upon arrival to the ER she was found to be tachycardic at 151bpm, atrial fibrillation. Patient has no prior cardiac history, no history of arrhythmia or atrial fibrillation. She was administered Cardizem bolus and drip with some improvement in HR. Patient reports feeling slightly short of breath earlier today which has resolved, she has a chronic cough. Presently with no complaints ER Course: NSS x 1L then 125mL/hr, Ativan 1mg, Metoprolol 5mg IV, Diltiazem 20mg, 25mg, drip, ASA 324mg Allergies Allergy/AdvReac Type Severity Reaction Status Date / Time No Known Allergies Allergy Unverified 04/18/20 23:07 Home Medications Medication Instructions Recorded Confirmed Type omeprazole 20 mg PO DAILY 04/18/20 04/18/20 History Past Med/Surg History Medical History (Updated 04/19/20 @ 01:28 by Genevieve Connell DO) Atrial fibrillation with RVR GERD (gastroesophageal reflux disease) No pertinent family history Surgical History (Updated 04/19/20 @ 00:12 by Say Delong) No pertinent past surgical history Family History (Updated 04/19/20 @ 01:13 by Genevieve Connell DO) Other No significant family history Social History (Updated 04/19/20 @ 01:14 by Genevieve Connell DO) Smoking Status: Current every day smoker Cigarettes Per Day: 20; Hx Alcohol Use: Yes Alcohol Intake Frequency: 2-4 x/Month Hx Substance Use: Yes Prescribed Medications: Marijuana Feels Safe at Home: Yes Review of Systems Review of Systems: All systems reviewed & are unremarkable except as noted in HPI & below Physical Exam Physical Exam: General: patient resting comfortably, NAD, non-toxic in appearance, AA&O x 4 Skin: warm, dry, intact, no rashes or lesions HEENT: NC/AT, PERRL, EOMI, anicteric sclera, conjunctiva without injection, external ear normal to inspection and nontender, nares patent, moist mucus membranes, dentition intact, no oropharyngeal lesions, neck supple, trachea midl ine, no LAD, no thyromegaly, no JVD Heart: +S1/S2, irregularly irregular, tachycardic, no m/r/g Lungs: equal air entry bilaterally, no rales/rhonchi, scattered end-expiratory wheezing throughout Abd: +BS, soft, NT/ND, no masses/organomegaly/ascites Ext: warm, 2+ pulses in UE/LE bilaterally, no clubbing/cyanosis or edema Neuro: nonfocal, patient AA&O x 4, speech intact, no facial droop, moving all extremities on command with equal strength 5/5 Results & Data Results & Data ([facility]) Vital Signs (Past 12 Hours) Vital Signs Temp Pulse Resp BP Pulse Ox 04/19/20 00:46 124 H 31 H 109/74 95 04/19/20 00:30 130 H 20 90/57 L 94 04/19/20 00:15 129 H 24 82/62 L 93 04/19/20 00:00 137 H 25 H 98/65 L 95 04/18/20 23:48 95 04/18/20 23:46 126 H 37 H 105/67 96 04/18/20 23:16 156 H 136/102 H 04/18/20 23:15 143 H 30 H 136/102 H 04/18/20 23:01 147 H 22 137/98 04/18/20 23:00 153 H 27 H 04/18/20 22:54 130 H 23 120/83 04/18/20 22:51 163 H 19 156/93 H 04/18/20 22:50 151 H 25 H 04/18/20 22:44 176 H 25 H 04/18/20 22:41 173 H 25 H 148/107 H 97 04/18/20 22:30 37.0 C 156 H 20 116/78 96 Laboratory Results Lab Results 04/18/20 04/18/20 04/18/20 Range/Units 22:45 22:45 22:45 WBC 19.81 H (4.8-10.8) K/uL RBC 5.26 (4.2-5.4) M/uL Hgb 15.4 (12.0-16.0) g/dL POC Hgb (12.0-16.0) g/dl Hct 45.7 (37-47) % POC Hct (37-47) % MCV 86.9 (80-100) fL MCH 29.3 (25-34) pg MCHC 33.7 (32-36) g/dL RDW Std Deviation 41.4 (36.4-46.3) fL RDW Coeff of Taya 13.0 (11.5-14.5) % Plt Count 332 (130-400) K/uL MPV 10.5 H (7.4-10.4) fL Immature Gran % (Auto) 0.3 % Neut % (Auto) 70.6 % Lymph % (Auto) 23.4 % [place] % (Auto) 4.7 % Eos % (Auto) 0.8 % Baso % (Auto) 0.2 % Neut # (Auto) 13.98 H (1.4-6.5) K/uL Lymph # (Auto) 4.64 H (1.2-3.4) K/uL [place] # (Auto) 0.94 H (0.11-0.59) K/uL Eos # (Auto) 0.15 (0-0.5) K/uL Baso # (Auto) 0.04 (0-0.2) K/uL Immature Gran # (Auto) 0.06 H (0.00-0.02) K/uL PT 10.3 (9.0-12.0) Seconds INR 1.0 (0.9-1.1) APTT 25.4 (21.0-31.0) Seconds PTT Ratio 0.9 POC Sodium (135-144) mmol/L Sodium 140 (136-145) mmol/L POC Potassium (3.3-5.0) mmol/L Potassium 3.5 (3.5-5.1) mmol/L POC Chloride (101-112) mmol/L Chloride 103 (98-107) mmol/L Carbon Dioxide 30 (21-32) mmol/L POC Total CO2 (24-31) mmol/L Anion Gap 7.0 (3-11) POC Anion Gap (16-25) mmol/L POC BUN (7-18) mg/dl BUN 15 (7-18) mg/dl Creatinine 0.97 (0.6-1.2) mg/dl POC Creatinine (0.6-1.3) mg/dl Est Cr Clr Drug Dosing 79.3 ml/min Est GFR ( Amer) 77.8 Est GFR (Non-Af Amer) 67.2 BUN/Creatinine Ratio 15.8 (10-20) Glucose 111 H (70-99) mg/dl POC Glucose (other) (70-99) mg/dl Calcium 9.1 (8.5-10.1) mg/dl POC Ioniz Calcium Yang (1.12-1.32) mmol/l Troponin I < 0.015 (0-0.045) ng/ml Lipase 282 (73-393) U/L SARS-CoV-2 Ag (Rapid) (Negative) 04/18/20 04/18/20 Range/Units 22:53 23:16 WBC (4.8-10.8) K/uL RBC (4.2-5.4) M/uL Hgb (12.0-16.0) g/dL POC Hgb 15.6 (12.0-16.0) g/dl Hct (37-47) % POC Hct 46 (37-47) % MCV (80-100) fL MCH (25-34) pg MCHC (32-36) g/dL RDW Std Deviation (36.4-46.3) fL RDW Coeff of Taya (11.5-14.5) % Plt Count (130-400) K/uL MPV (7.4-10.4) fL Immature Gran % (Auto) % Neut % (Auto) % Lymph % (Auto) % [place] % (Auto) % Eos % (Auto) % Baso % (Auto) % Neut # (Auto) (1.4-6.5) K/uL Lymph # (Auto) (1.2-3.4) K/uL [place] # (Auto) (0.11-0.59) K/uL Eos # (Auto) (0-0.5) K/uL Baso # (Auto) (0-0.2) K/uL Immature Gran # (Auto) (0.00-0.02) K/uL PT (9.0-12.0) Seconds INR (0.9-1.1) APTT (21.0-31.0) Seconds PTT Ratio POC Sodium 140 (135-144) mmol/L Sodium (136-145) mmol/L POC Potassium 3.5 (3.3-5.0) mmol/L Potassium (3.5-5.1) mmol/L POC Chloride 102 (101-112) mmol/L Chloride (98-107) mmol/L Carbon Dioxide (21-32) mmol/L POC Total CO2 29 (24-31) mmol/L Anion Gap (3-11) POC Anion Gap 13.0 L (16-25) mmol/L POC BUN 16 (7-18) mg/dl BUN (7-18) mg/dl Creatinine (0.6-1.2) mg/dl POC Creatinine 1.0 (0.6-1.3) mg/dl Est Cr Clr Drug Dosing ml/min Est GFR ( Amer) Est GFR (Non-Af Amer) BUN/Creatinine Ratio (10-20) Glucose (70-99) mg/dl POC Glucose (other) 110 H (70-99) mg/dl Calcium (8.5-10.1) mg/dl POC Ioniz Calcium Yang 1.08 L (1.12-1.32) mmol/l Troponin I (0-0.045) ng/ml Lipase (73-393) U/L SARS-CoV-2 Ag (Rapid) Negative (Negative) Diagnostic Findings CT SCAN OF THE BRAIN WITHOUT IV CONTRAST CLINICAL HISTORY: Fall. Syncope. COMPARISON STUDY: No priors. TECHNIQUE: Unenhanced axial CT scan of the brain is performed from the vertex to the skull base. A dose lowering technique was utilized adhering to the principles of ALARA. FINDINGS: Brain parenchyma: The brain parenchyma is normal in appearance. There is no hemorrhage, mass effect, or evidence of acute territorial ischemia by CT criteria. [place]-white matter differentiation is preserved. No extra-axial fluid collection is seen. Ventricles, sulci, cisterns: Normal in configuration. Intracranial vasculature: The visualized intracranial vasculature at the skull base is normal in appearance. Calvarium: There is no depressed calvarial fracture. Question a small osteochondroma arising from the left mandibular condyle on image #5. Sinuses and mastoids: The visualized paranasal sinuses are clear. The mastoid air cells are well pneumatized. Orbits: The bony orbits are grossly intact. IMPRESSION: No acute intracranial abnormality. ACT 112: Negative or not required by law. Electronically signed by: Yonis Campos M.D. 04/18/2020 11:52 PM Dictated: 04/18/202348Transcribed: 04/18/202348 CT ANGIOGRAM OF THE CHEST CLINICAL HISTORY: Syncope. Dyspnea. COMPARISON STUDY: Chest x-ray dated 04/18/2020. Chest CT dated 07/23/2017. TECHNIQUE: Following the IV administration of 120 cc of Optiray 320, CT angiogram of the chest was performed from the upper abdomen to the thoracic inlet utilizing the pulmonary embolus protocol. Images are reviewed in the axial, sagittal, and coronal planes. 3-D MIPS images are created and assessed. IV contrast was administered without complication. A dose lowering technique was utilized adhering to the principles of ALARA. CT DOSE: 1496.41 mGy.cm FINDINGS: Thyroid: Imaged portions of the thyroid gland are normal in size and attenuation. Thoracic aorta: There is mild atherosclerotic calcification of the thoracic aorta, which is normal in caliber and demonstrates standard 3-vessel arch anatomy. No dissection is seen. Pulmonary vasculature: The pulmonary trunk is is dilated, measuring 3.6 cm in diameter. This suggests pulmonary artery hypertension. There are no filling defects within the main, lobar, or segmental pulmonary arteries to indicate pulmonary embolus. Heart: The heart is top normal in size and without pericardial effusion. Lungs and pleural spaces: Evaluation of the lung parenchyma is compromised by motion artifact. There is mild chronic elevation of the right hemidiaphragm. Foci of parenchymal scarring in the atelectasis seen at both lung bases is similar to previous. There is no airspace consolidation typical for pneumonia or pleural effusion. There is mild diffuse peribronchial thickening. The trachea and central airways are clear. Motion artifact degrades assessment for small pulmonary nodules. Mediastinum: There is no mediastinal lymphadenopathy. [place]: Clear. Axillae: There is no axillary lymphadenopathy. Upper abdomen: Cholecystectomy clips are noted. There is a tiny hiatal hernia. A 3.9 cm right adrenal adenoma is unchanged from previous. A 1.8 cm exophytic cyst is partially visualized arising from the upper pole of the left kidney. Skeletal structures: No lytic or blastic bony lesions are seen. There are healed right-sided rib fractures. IMPRESSION: 1. There is no evidence of pulmonary embolus in the main, lobar, or segmental pulmonary arteries. 2. There is no airspace consolidation or pleural effusion. 3. Mild diffuse peribronchial thickening suggests bronchitis/reactive airway disease. Clinical correlation will be required. 4. Foci of scarring/atelectasis at both lung bases is similar to previous. 5. Additional findings as above. ACT 112: Negative or not required by law. Electronically signed by: Yonis Campos M.D. 04/19/2020 12:04 AM Dictated: 04/18/202351Transcribed: 04/18/202351 SINGLE VIEW CHEST CLINICAL HISTORY: Atypical chest pain. FINDINGS: An AP, portable, upright chest radiograph is compared to study dated 12/16/2016. Correlation is made with chest CT dated 07/23/2017. The examination is degraded by portable technique and patient rotation. The cardiomediastinal silhouette is unremarkable. There is mild chronic elevation of the right hemidiaphragm. There are bibasilar airspace opacities which are similar to previous. No large pleural effusion or pneumothorax is seen. The bony thorax is grossly intact. IMPRESSION: Bibasilar airspace opacities are similar to previous. This could represent scarring/atelectasis versus an infectious/inflammatory pneumonitis. Clinical correlation will be required. ACT 112: Negative or not required by law. Electronically signed by: Yonis Campos M.D. 04/19/2020 12:10 AM Dictated: 04/19/208Transcribed: 04/19/208 ECG Additional Comments: AF at 119bpm, normal axis, QRS=82, IQe=001, no acute ischemic changes PG Care Time/CCT Total # of Minutes Spent Total Time Spent with Patient: Total time spent is greater than 50% in coordination of care (as documented) at patient's floor/unit and/or counseling patient: Coding Level of Care Code 63443 Initial Inpt Care Lvl 2 Diagnoses Atrial fibrillation with RVR I48.91 Syncope R55 Syncope type: unspecified GERD (gastroesophageal reflux disease) K21.9 Esophagitis presence: esophagitis presence not specified (1) GERD (gastroesophageal reflux disease) Esophagitis presence: esophagitis presence not specified Qualified Code(s): K21.9 - Gastro-esophageal reflux disease without esophagitis (2) Syncope Syncope type: unspecified Qualified Code(s): R55 - Syncope and collapse
[2020-04-19] MEDS ORDERED: CALCIUM GLUCONATE 10% 1,000 MG in SODIUM CHLORIDE 0.9% 50 ML IV ONE (02:03)
[2020-04-19] MEDS ORDERED: METOPROLOL TARTRATE 25 MG TAB PO SCH ×2 (02:03→09:00)
[2020-04-19] MEDS ORDERED: LACTATED RINGER'S 1,000 ML IV SCH (02:03)
[2020-04-19 02:19] LABS: Magnesium 1.9 mg/dl (1.8-2.4)
[2020-04-19 02:44] LABS: Amphetamines+Metham, Urine Neg (Neg); Barbiturates, Urine Neg (Neg); Benzodiazepine, Urine Neg (Neg); Cocaine, Urine Neg (Neg); MDMA (Ecstacy), Urine Neg (Neg); Methadone, Urine Neg (Neg); Opiate, Urine Neg (Neg); Phencyclidine, Urine Neg (Neg)
[2020-04-19] MEDS: dilTIAZem HCL 125 MG in DEXTROSE 5% 100 ML IV SCH (06:35)
[2020-04-19 06:55] LABS: Basophils # (auto) 0.04 K/uL (0-0.2); Basophils % (auto) 0.3 %; Eosinophils # (auto) 0.16 K/uL (0-0.5); Eosinophils % (auto) 1.2 %; Hematocrit (blood only) 39.8 % (37-47); Hemoglobin 13.1 g/dL (12.0-16.0); Immature Granulocytes # (auto) 0.04 K/uL (0.00-0.02); Immature Granulocytes % (auto) 0.3 %; Lymphocytes # (auto) 3.46 K/uL (1.2-3.4); Lymphocytes % (auto) 25.9 %; Mean Corpuscular Hgb Conc 32.9 g/dL (32-36); Mean Corpuscular Volume 88.1 fL (80-100); Mean Platelet Volume 10.8 fL (7.4-10.4); Monocytes # (auto) 0.67 K/uL (0.11-0.59); Neutrophils # (auto) 8.98 K/uL (1.4-6.5); Neutrophils % (auto) 67.3 %; Platelet Count 280 K/uL (130-400); RDW Coefficient of Variation 13.3 % (11.5-14.5); RDW Standard Deviation 43.1 fL (36.4-46.3); Red Blood Count 4.52 M/uL (4.2-5.4); White Blood Count 13.35 K/uL (4.8-10.8)
[2020-04-19 07:28] LABS: BUN Creatinine Ratio 24.4 (10-20); Calcium 8.4 mg/dl (8.5-10.1); Creatinine Clr Calc Pharmacy 128.2 ml/min; Est GFR (African American) 118.3; Est GFR (Non-African American) 102.1; Potassium 4.4 mmol/L (3.5-5.1)
[2020-04-19 07:42] LABS: Thyroid Stimulating Hormone 1.45 uIu/ml (0.300-4.500); Troponin I 0.062 ng/ml (0-0.045)
--- NOTE | 2020-04-19 08:23 | Hospitalist Progress Note ---
Date of Service April 19, 2020 Assessment & Plan (1) Atrial fibrillation with RVR: 54yo C female presenting after syncopal event. Found to be in atrial fibrillation with RVR. Patient with no prior history of cardiac disease or arrhythmia. BP is stable at this time, patient asymptomatic. Slight improvement in rate with Cardizem. Patient with documented history of HTN on the chart, patient states she does not have HTN. Presently not on medications for HTN. Concerning that episode of syncope preceded discovery of new arrhythmia. ?substance induced arrhythmia in setting of recent marijuana use Last echo in 2017 with normal LV size, borderline concentric LVH, normal WM, EF 60-65%, no significant valvulopathy. -Admit to PCU -Check Mg, TSH -Check UTox -Check 2D echo -Repeat troponin x 1 with AM lab -Cardiology consultation appreciated -Metoprolol 25mg po BID -Continue Cardizem gtt for now -54yo female with history of HTN - [id number]=1 points corresponding with 2.2% per year stroke risk. Patient is at moderate-high risk and should be considered for anticoagulation. (2) Syncope: Patient with syncopal event at home. She did report some prodromal symptoms of lightheadedness. Denies CP/Palpitations preceding her syncopal event. She was diaphoretic upon waking then found to be in AF with RVR. ?if underlying arrhythmia contributed to syncopal event -Check orthostatic VS -Telemetry monitoring -Management of AF as above -2D echo ordered (?if this study will be delayed due to holiday). Last echo in 2017 with structurally normal heart (3) GERD (gastroesophageal reflux disease): Chronic. Stable -Continue Omeprazole F/E/N - LR at 125mL/hr x 1 liter, Ca repletion, Check Mg and replete as needed, Regular diet as tolerated Ppx - Lovenox 40 Code - Full per discussion Dispo - Admit to PCU Admission and Anticipated Discharge Date Admission Date: April 19, 2020 Results & Data Results & Data ([facility]) Vital Signs (Past 12 Hours) Vital Signs Temp Pulse Pulse Resp BP BP Pulse Ox 04/19/20 07:51 66 04/19/20 07:10 97.9 F 94 H 20 110/68 94 04/19/20 07:00 103 H 04/19/20 04:47 107 H 126/72 04/19/20 02:04 97.7 F 95 H 16 118/83 96 04/19/20 01:30 117 H 23 109/57 L 94 04/19/20 01:01 128 H 21 115/47 L 96 04/19/20 00:46 124 H 31 H 109/74 95 04/19/20 00:30 130 H 20 90/57 L 94 04/19/20 00:15 129 H 24 82/62 L 93 04/19/20 00:00 137 H 25 H 98/65 L 95 04/18/20 23:48 95 04/18/20 23:46 126 H 37 H 105/67 96 04/18/20 23:16 156 H 136/102 H 04/18/20 23:15 143 H 30 H 136/102 H 04/18/20 23:01 147 H 22 137/98 04/18/20 23:00 153 H 27 H 04/18/20 22:54 130 H 23 120/83 04/18/20 22:51 163 H 19 156/93 H 04/18/20 22:50 151 H 25 H 04/18/20 22:44 176 H 25 H 04/18/20 22:41 173 H 25 H 148/107 H 97 04/18/20 22:30 98.6 F 156 H 20 116/78 96 PG Care Time/CCT Total # of Minutes Spent Total Time Spent with Patient: Total time spent is greater than 50% in coordination of care (as documented) at patient's floor/unit and/or counseling patient: Coding Diagnoses Atrial fibrillation with RVR I48.91 Syncope R55 Syncope type: unspecified GERD (gastroesophageal reflux disease) K21.9 Esophagitis presence: esophagitis presence not specified (1) Syncope Syncope type: unspecified Qualified Code(s): R55 - Syncope and collapse (2) GERD (gastroesophageal reflux disease) Esophagitis presence: esophagitis presence not specified Qualified Code(s): K21.9 - Gastro-esophageal reflux disease without esophagitis
[2020-04-19] MEDS ORDERED: ENOXAPARIN INJ 40 MG/0.4 ML SYR SQ SCH (09:00)
[2020-04-19] MEDS ORDERED: PANTOprazole 40 MG TAB PO SCH (09:00)
[2020-04-19] MEDS ORDERED: NICOTINE 21 MG/24 HR TDSY TD SCH (09:00)
--- NOTE | 2020-04-19 09:57 | XCELERA ---
[id number]
--- NOTE | 2020-04-19 10:06 | Cardiology Consultation ---
Date of Consultation April 19, 2020 Assessment & Plan (1) Syncope: Etiology of her syncope is unclear. It could have been vagally mediated given the description of events. She had chest urinated and did have some mild prodrome including significant diaphoresis afterwards. It is possible that it represented to transition to atrial fibrillation. She had a similar episode in the past that was attributed to hypotension. Her echocardiogram revealed preserved LV systolic function which puts her in a category people who would likely have a good outcome and any regard. Her baseline EKG appears normal. At this point I think it would be reasonable to continue outpatient event monitorin g and see if she has any additional symptoms or occult arrhythmias. (2) Atrial fibrillation with RVR: No prior history of atrial fibrillation. Unclear if this was precipitated by high vagal tone resulting in syncope or possibly her alcohol intake earlier in the evening. Also possibly precipitated by micturition. What its relationship to her syncope was is also unclear. She did have high ventricular rates during her episode of atrial fibrillation. However, she spontaneously converted within a few hours. Given the fact that this is her 1st event and there was a possible precipitant, do not think she needs scheduled rate control medications. I think we can monitor her for recurrences. Additionally, her chads Vasc score is essentially 1. This is based exclusively on her gender. As such, I think we can defer anticoagulation. (3) Elevated troponin: Very minimal elevation. Not indicative of an acute coronary syndrome. Likely more related to atrial fibrillation rapid ventricular rates. Do not believe she requires any additional evaluation in this regard. History of Present Illness Reason for Consultation: Atrial fibrillation Requesting Physician: Ko Attending Physician: Malachi Crawford MD History of Present Illness The patient is a 54-year-old woman without a known history of cardiac disease who suffered a syncopal episode yesterday evening. The patient had been at a friend's house where she reportedly drank 3-4 beers. When she was at home she suffered a syncopal episode after using the restroom. The patient states that she went to urinate in the process of returning from the bathroom perhaps noticed some mild dizziness before losing consciousness. When she woke she was notably diaphoretic and had some mild nausea. She did not quite feel right. She was driven to the emergency room by her mother and at the time of arrival discovered to have atrial fibrillation with rapid ventricular response. She has otherwise been feeling well recently. She has not had other constitutional symptoms such as fevers or chills. No coughing. No breathing difficulty. No chest pain either at rest or with activity. She has been able to maintain her usual level of activity. She does report being under more stress recently. He has not been aware of any palpitations. She does not check her pulse or heart rates regularly at home. She has had 1 additional episode of syncope 3 years ago. This was similar in character. Occurred when she was getting up to get out of bed. It seems to have been attributed to low blood pressure and she was diagnosed with pneumonia at that time. Allergies Allergy/AdvReac Type Severity Reaction Status Date / Time No Known Allergies Allergy Unverified 04/18/20 23:07 Home Medications Medication Instructions Recorded Confirmed Type omeprazole 20 mg PO DAILY 04/18/20 04/18/20 History Patient History Medical History Atrial fibrillation with RVR GERD (gastroesophageal reflux disease) No pertinent family history Surgical History No pertinent past surgical history Family History Other No significant family history Social History Smoking Status: Current every day smoker Cigarettes Per Day: 20; Hx Alcohol Use: Yes Alcohol type: beer Alcohol Intake Frequency: 2-4 x/Month Hx Substance Use: No Preferred Language: [place] Communication Ability: Effective Literacy Education Professor Required: No Beliefs That Will Affect Care: None Current Living Situation: Alone Feels Safe at Home: Yes Assistive Devices: None Review of Systems Review of Systems: All systems reviewed & are unremarkable except as noted in HPI & below Physical Exam Physical Exam: She is alert and oriented x3. Mood affect appear normal. She answered all questions appropriately. HEENT: Sclerae are anicteric. Pupils are equal and reactive to light and accommodation. Extraocular movements were intact. Neuro: Cranial nerves intact Neck: Examination of the submandibular region did not reveal any significant lymphadenopathy. Carotids are palpable bilaterally and free of bruits on auscultation. There was no evidence of jugular venous distention. The thyroid was not enlarged. Lungs: Lungs are clear to auscultation bilaterally. There are no rales wheezes or rhonchi. She has normal respiratory effort without use of accessory muscles. There is normal pulmonary excursion. Cardiac: The rhythm was regular. S1 and S2 were normal. There are no murmurs on examination. The PMI was not markedly displaced on palpation. Abdomen: The abdomen was soft and nontender. Extremities: Patient has bilateral radial pulses that are equal in intensity. There is no evidence cyanosis or clubbing. There was no evidence of significant peripheral edema bilaterally. Skin: There are no rashes noted on examination today. Results & Data ([facility]) Vital Signs (Past 12 Hours) Vital Signs Temp Pulse Pulse Resp BP BP BP 04/19/20 09:30 89/47 L 106/67 04/19/20 07:51 66 04/19/20 07:10 36.6 C 94 H 20 110/68 04/19/20 07:00 103 H 04/19/20 04:47 107 H 126/72 04/19/20 02:04 36.5 C 95 H 16 118/83 04/19/20 01:30 117 H 23 109/57 L 04/19/20 01:01 128 H 21 115/47 L 04/19/20 00:46 124 H 31 H 109/74 04/19/20 00:30 130 H 20 90/57 L 04/19/20 00:15 129 H 24 82/62 L 04/19/20 00:00 137 H 25 H 98/65 L 04/18/20 23:48 04/18/20 23:46 126 H 37 H 105/67 04/18/20 23:16 156 H 136/102 H 04/18/20 23:15 143 H 30 H 136/102 H 04/18/20 23:01 147 H 22 137/98 04/18/20 23:00 153 H 27 H 04/18/20 22:54 130 H 23 120/83 04/18/20 22:51 163 H 19 156/93 H 04/18/20 22:50 151 H 25 H 04/18/20 22:44 176 H 25 H 04/18/20 22:41 173 H 25 H 148/107 H 04/18/20 22:30 37.0 C 156 H 20 116/78 Pulse Ox 04/19/20 09:30 04/19/20 07:51 04/19/20 07:10 94 04/19/20 07:00 04/19/20 04:47 04/19/20 02:04 96 04/19/20 01:30 94 04/19/20 01:01 96 04/19/20 00:46 95 04/19/20 00:30 94 04/19/20 00:15 93 04/19/20 00:00 95 04/18/20 23:48 95 04/18/20 23:46 96 04/18/20 23:16 04/18/20 23:15 04/18/20 23:01 04/18/20 23:00 04/18/20 22:54 04/18/20 22:51 04/18/20 22:50 04/18/20 22:44 04/18/20 22:41 97 04/18/20 22:30 96 Laboratory Results Abnormal Lab Results 04/18/20 04/18/20 04/18/20 22:45 22:45 22:45 WBC 19.81 H RBC 5.26 Hgb 15.4 POC Hgb Hct 45.7 POC Hct MCV 86.9 MCH 29.3 MCHC 33.7 RDW Std Deviation 41.4 RDW Coeff of Taya 13.0 Plt Count 332 MPV 10.5 H Immature Gran % (Auto) 0.3 Neut % (Auto) 70.6 Lymph % (Auto) 23.4 Dane % (Auto) 4.7 Eos % (Auto) 0.8 Baso % (Auto) 0.2 Neut # (Auto) 13.98 H Lymph # (Auto) 4.64 H Dane # (Auto) 0.94 H Eos # (Auto) 0.15 Baso # (Auto) 0.04 Immature Gran # (Auto) 0.06 H PT 10.3 INR 1.0 APTT 25.4 PTT Ratio 0.9 POC Sodium Sodium 140 POC Potassium Potassium 3.5 POC Chloride Chloride 103 Carbon Dioxide 30 POC Total CO2 Anion Gap 7.0 POC Anion Gap POC BUN BUN 15 Creatinine 0.97 POC Creatinine Est Cr Clr Drug Dosing 79.3 Est GFR ( Amer) 77.8 Est GFR (Non-Af Amer) 67.2 BUN/Creatinine Ratio 15.8 Glucose 111 H POC Glucose (other) Calcium 9.1 POC Ioniz Calcium Yang Magnesium 1.9 Total Creatine Kinase Troponin I < 0.015 Lipase 282 TSH Urine Opiates Screen Ur Methadone, Qual Urine Barbiturates Ur Phencyclidine (PCP) U Amphetamin/Meth Scrn MDMA (Ecstasy) Screen U Benzodiazepines Scrn Ur Cocaine Metabolite U Marijuana (THC) Screen SARS-CoV-2 Ag (Rapid) 04/18/20 04/18/20 04/19/20 22:53 23:16 02:15 WBC RBC Hgb POC Hgb 15.6 Hct POC Hct 46 MCV MCH MCHC RDW Std Deviation RDW Coeff of Taya Plt Count MPV Immature Gran % (Auto) Neut % (Auto) Lymph % (Auto) Dane % (Auto) Eos % (Auto) Baso % (Auto) Neut # (Auto) Lymph # (Auto) Dane # (Auto) Eos # (Auto) Baso # (Auto) Immature Gran # (Auto) PT INR APTT PTT Ratio POC Sodium 140 Sodium POC Potassium 3.5 Potassium POC Chloride 102 Chloride Carbon Dioxide POC Total CO2 29 Anion Gap POC Anion Gap 13.0 L POC BUN 16 BUN Creatinine POC Creatinine 1.0 Est Cr Clr Drug Dosing Est GFR ( Amer) Est GFR (Non-Af Amer) BUN/Creatinine Ratio Glucose POC Glucose (other) 110 H Calcium POC Ioniz Calcium Yang 1.08 L Magnesium Total Creatine Kinase Troponin I Lipase TSH Urine Opiates Screen Neg Ur Methadone, Qual Neg Urine Barbiturates Neg Ur Phencyclidine (PCP) Neg U Amphetamin/Meth Scrn Neg MDMA (Ecstasy) Screen Neg U Benzodiazepines Scrn Neg Ur Cocaine Metabolite Neg U Marijuana (THC) Screen Pos H SARS-CoV-2 Ag (Rapid) Negative 04/19/20 04/19/20 06:05 06:05 WBC 13.35 H RBC 4.52 Hgb 13.1 POC Hgb Hct 39.8 POC Hct MCV 88.1 MCH 29.0 MCHC 32.9 RDW Std Deviation 43.1 RDW Coeff of Taya 13.3 Plt Count 280 MPV 10.8 H Immature Gran % (Auto) 0.3 Neut % (Auto) 67.3 Lymph % (Auto) 25.9 Dane % (Auto) 5.0 Eos % (Auto) 1.2 Baso % (Auto) 0.3 Neut # (Auto) 8.98 H Lymph # (Auto) 3.46 H Dane # (Auto) 0.67 H Eos # (Auto) 0.16 Baso # (Auto) 0.04 Immature Gran # (Auto) 0.04 H PT INR APTT PTT Ratio POC Sodium Sodium 141 POC Potassium Potassium 4.4 D POC Chloride Chloride 112 H Carbon Dioxide 25 POC Total CO2 Anion Gap 4.0 POC Anion Gap POC BUN BUN 16 Creatinine 0.65 D POC Creatinine Est Cr Clr Drug Dosing 128.2 Est GFR ( Amer) 118.3 Est GFR (Non-Af Amer) 102.1 BUN/Creatinine Ratio 24.4 H Glucose 113 H POC Glucose (other) Calcium 8.4 L POC Ioniz Calcium Yang Magnesium Total Creatine Kinase 73 Troponin I 0.062 H* Lipase TSH 1.450 Urine Opiates Screen Ur Methadone, Qual Urine Barbiturates Ur Phencyclidine (PCP) U Amphetamin/Meth Scrn MDMA (Ecstasy) Screen U Benzodiazepines Scrn Ur Cocaine Metabolite U Marijuana (THC) Screen SARS-CoV-2 Ag (Rapid) Diagnostic Findings Chest CT obtained the time admission not reveal any evidence of pulmonary embolus. Head CT did not reveal any intracranial abnormality Echocardiogram performed today revealed preserved LV systolic function with mild LVH. No significant valvular heart disease. PG Care Time/CCT Total # of Minutes Spent Total Time Spent with Patient: Total time spent is greater than 50% in coordinat ion of care (as documented) at patient's floor/unit and/or counseling patient: Coding Level of Care Code 99085 Office/OBS Consult Lvl 4 Diagnoses Syncope R55 Syncope type: unspecified Atrial fibrillation with RVR I48.91 Elevated troponin R77.8 (1) Syncope Syncope type: unspecified Qualified Code(s): R55 - Syncope and collapse
--- NOTE | 2020-04-19 13:38 | Discharge Summary ---
Date of Service April 19, 2020 Admission HPI Per Admitting Provider Mariana Bronson is a 54yo female presenting after a syncopal event at home. Patient was in her usual state of health throughout the day. She went to a friend's house in the evening and smoked a small amount of marijuana. Afterwards she returned home. She was walking from her bathroom and became lightheaded and passed out around 21:30. She remembers waking up on the floor and being diaphoretic. She does not know how long she was down. Denies head trauma, neck pain, chest pain, palpitations, numbness, weakness, DAVE preceding or following the syncopal event. Upon arrival to the ER she was found to be tachycardic at 151bpm, atrial fibrillation. Patient has no prior cardiac history, no history of arrhythmia or atrial fibrillation. She was administered Cardizem bolus and drip with some improvement in HR. Patient reports feeling slightly short of breath earlier today which has resolved, she has a chronic cough. Presently with no complaints ER Course: NSS x 1L then 125mL/hr, Ativan 1mg, Metoprolol 5mg IV, Diltiazem 20mg, 25mg, drip, ASA 324mg Principal Diagnosis atrial fibrillation resolved Discharge Exam The patient appeared well Vital signs as documented. Lungs are clear to auscultation and appear unlabored Cardiac exam, Rhythm is regular.. No murmurs, rubs or gallops. Abdominal exam reveals normal bowel sounds, soft non tender, no masses Extremities are nonedematous and both pedal pulses are normal. Neurologic exam is alert and oriented, no focal loss of strength or sensation Skin is without bruises or rashes Psychologically is without concerns for anxiety or depression. Discharge Data Allergies Allergy/AdvReac Type Severity Reaction Status Date / Time No Known Allergies Allergy Unverified 04/18/20 23:07 Consultations 04/19/20 00:08 ED Decision to Admit Stat 04/19/20 02:03 Consult Cardiology Routine Ordered Studies 04/18/20 22:44 CT angio chest PE protocol Stat 04/18/20 22:48 CT head/brain wo con Stat Hospital Course (1) Atrial fibrillation with RVR: 54yo C female presenting after syncopal event. Found to be in atrial fibrillation with RVR. Patient with no prior history of cardiac disease or arrhythmia. BP is stable at this time, patient asymptomatic. Slight improve ment in rate with Cardizem. Patient with documented history of HTN on the chart, patient states she does not have HTN. Presently not on medications for HTN. Concerning that episode of syncope preceded discovery of new arrhythmia. ?substance induced arrhythmia in setting of recent marijuana use Last echo in 2017 with normal LV size, borderline concentric LVH, normal WM, EF 60-65%, no significant valvulopathy. -Cardiology consultation appreciated, do not recommend any medicaiton or anticoagulation, will follow up as an outpt reportedly her Echo also looked normal (2) Syncope: Patient with syncopal event at home. She did report some prodromal symptoms of lightheadedness. Denies CP/Palpitations preceding her syncopal event. She was diaphoretic upon waking then found to be in AF with RVR. ?if underlying arrhythmia contributed to syncopal event -returned to [facility], slightly low blood pressure from meds, will recommend good hydration at home, meds will wear off in a few hours, follow up with cardiology as an outpt (3) GERD (gastroesophageal reflux disease): Code - Full per discussion Total Time Total Time Spent Total Time Spent (In Minutes): It required greater than 30 minutes to prepare this patient for discharge, this includes personal discussion with Dr. mckenna regarding her plan of care Discharge Plan Discharge Items Patient Disposition: Home - Self-Care Reason For Visit: AF WITH RVR, SYNCOPE Discharge Diagnosis: atrial fibrillation resolved Activity: Resume your previous activity Non-emergency contact: Primary Care Provider and Warranty Administrator Call non-emergency contact if: you have any medication questions and your symptoms worsen Follow-up/Referrals: Danny David MD [Primary Care Provider] - Danny Mckenna MD [Physician] - Diet: Regular Diet Comment: caffiene free diet Addtl Attending Provider Instructions: please avoid caffiene and other stimulants, follow up with Dr Mckenna for further testing and office visit, the offices scheduling is closed at this time so please call on wednesday for appointment Pending Studies at Discharge: No Stand-Alone Forms: My to-BBB, Smoking Cessation Medications and DC Order Prescriptions: Continued omeprazole 20 mg Tablet,Delayed Release (Dr/Ec) 20 mg PO DAILY RF: 0 Discharge Orders: Discharge Order (Routine); Ordered 04/19/20 Ordered By: Malachi Galindo/Other Patient Handouts: Understanding Atrial Fibrillation Admission Data Admit Date/Time: 04/19/20 00:57 Attending Provider: Malachi Crawford Admit Provider: Genevieve Connell Primary Care Provider: Danny David Other Providers: Genevieve Connell ; Danny Mckenna Other Interventions: Discharge Summary Assessment (RN) Last Done: 04/19/20 10:19 Coding Level of Care Code D/C Day Management >30 mins Diagnoses Atrial fibrillation with RVR I48.91 Syncope R55 Syncope type: unspecified GERD (gastroesophageal reflux disease) K21.9 Esophagitis presence: esophagitis presence not specified
--- NOTE | 2020-04-19 18:01 | Electrocardiogram Report ---
Test Reason : Blood Pressure : / mmHG Vent. Rate : 120 BPM Atrial Rate : 100 BPM P-R Int : 000 ms QRS Dur : 082 ms QT Int : 272 ms P-R-T Axes : 000 062 056 degrees QTc Int : 384 ms Poor data quality, interpretation may be adversely affected Atrial fibrillation with rapid ventricular response Abnormal ECG When compared with ECG of 18-APR-2020 22:52, (unconfirmed) No significant change was found Confirmed by Donal Mckenna ([id number]) on 04/19/2020 6:01:40 PM Referred By: REFERRED SELF Confirmed By:Myron Mckenna
--- NOTE | 2020-04-19 18:01 | Electrocardiogram Report ---
Test Reason : Blood Pressure : / mmHG Vent. Rate : 158 BPM Atrial Rate : 166 BPM P-R Int : 000 ms QRS Dur : 080 ms QT Int : 290 ms P-R-T Axes : 000 061 050 degrees QTc Int : 470 ms Atrial fibrillation with rapid ventricular response Nonspecific ST abnormality Abnormal ECG When compared with ECG of 18-APR-2020 22:44, (unconfirmed) No significant change was found Confirmed by Donal Mckenna ([id number]) on 04/19/2020 6:01:27 PM Referred By: REFERRED SELF Confirmed By:Myron Mckenna
--- NOTE | 2020-04-19 18:01 | Electrocardiogram Report ---
Test Reason : Blood Pressure : / mmHG Vent. Rate : 159 BPM Atrial Rate : 097 BPM P-R Int : 000 ms QRS Dur : 084 ms QT Int : 302 ms P-R-T Axes : 000 055 051 degrees QTc Int : 491 ms Supraventricular tachycardia Abnormal ECG Confirmed by Donal Mckenna ([id number]) on 04/19/2020 6:00:54 PM Referred By: REFERRED SELF Confirmed By:Myron Mckenan
--- NOTE | 2020-04-19 18:01 | Electrocardiogram Report ---
Test Reason : Blood Pressure : / mmHG Vent. Rate : 176 BPM Atrial Rate : 178 BPM P-R Int : 000 ms QRS Dur : 074 ms QT Int : 218 ms P-R-T Axes : 000 052 058 degrees QTc Int : 373 ms Atrial fibrillation with rapid ventricular response Nonspecific ST abnormality Abnormal ECG When compared with ECG of 18-APR-2020 22:40, (unconfirmed) Previous ECG has undetermined rhythm, needs review Confirmed by Donal Mckenna ([id number]) on 04/19/2020 6:01:10 PM Referred By: REFERRED SELF Confirmed By:Myron Mckenna
--- NOTE | 2020-04-19 18:02 | Electrocardiogram Report ---
Test Reason : Blood Pressure : / mmHG Vent. Rate : 119 BPM Atrial Rate : 088 BPM P-R Int : 000 ms QRS Dur : 082 ms QT Int : 284 ms P-R-T Axes : 000 054 060 degrees QTc Int : 399 ms Atrial fibrillation with rapid ventricular response with premature ventricular or aberrantly conducte d complexes Abnormal ECG When compared with ECG of 18-APR-2020 22:54, (unconfirmed) No significant change was found Confirmed by Donal Mckenna ([id number]) on 04/19/2020 6:01:51 PM Referred By: REFERRED SELF Confirmed By:Myron Mckenna
[2020-04-22 05:03] LABS: Marijuana Quant, GCMS Urine 56 ng/mL (<5)
== END 2020-04-19 10:48 | disposition home or self-care (01) ==
LOC: ED 22:25 → SUATTDRO 04-19 00:57 → INTOOBSV 04-19 00:57 → 2S 04-19 00:57

== ENCOUNTER 2021-05-15 19:31 | Observation (INO) ==
[2021-05-15 19:56] LABS: Basophils # (auto) 0.04 K/uL (0-0.2); Basophils % (auto) 0.3 %; Eosinophils # (auto) 0.14 K/uL (0-0.5); Eosinophils % (auto) 1.2 %; Hematocrit (blood only) 46.5 % (37-47); Hemoglobin 15.3 g/dL (12.0-16.0); Immature Granulocytes # (auto) 0.03 K/uL (0.00-0.02); Immature Granulocytes % (auto) 0.2 %; Lymphocytes # (auto) 3.66 K/uL (1.2-3.4); Lymphocytes % (auto) 30.4 %; Mean Corpuscular Hemoglobin 29.1 pg (25-34); Mean Corpuscular Hgb Conc 32.9 g/dL (32-36); Mean Corpuscular Volume 88.4 fL (80-100); Monocytes # (auto) 0.97 K/uL (0.11-0.59); Neutrophils # (auto) 7.21 K/uL (1.4-6.5); Neutrophils % (auto) 59.9 %; Platelet Count 308 K/uL (130-400); RDW Standard Deviation 42.4 fL (36.4-46.3); Red Blood Count 5.26 M/uL (4.2-5.4); White Blood Count 12.05 K/uL (4.8-10.8)
--- NOTE | 2021-05-15 20:03 | XRay Report ---
SINGLE VIEW CHEST CLINICAL HISTORY: Atypical chest pain. FINDINGS: An AP, portable, upright chest radiograph is compared to study dated 05/10/2021. Correlation is made with chest CT dated 11/15/2020. The cardiomediastinal silhouette is unremarkable noting mild atherosclerotic calcification of the thoracic aorta. There is chronic elevation of the right hemidiap hragm with right basilar scarring/atelectasis. No airspace consolidation or large pleural effusion is identified. No pneumothorax is seen. The skeletal structures appear osteopenic. The bony thorax is g rossly intact. IMPRESSION: No acute cardiopulmonary abnormality. ACT 112: Negative or not required by law. Electronically signed by: Yonis Campos M.D. 05/15/2021 8:02 PM
[2021-05-15 20:08] LABS: Partial Thromboplastin Time 26.5 Seconds (21.0-31.0); Prothrombin Time 10.2 Seconds (9.0-12.0)
[2021-05-15 20:18] LABS: Alanine Aminotransferase 25 U/L (7-52); Albumin Globulin Ratio 1.6 (0.9-2); Albumin Level 4.7 gm/dl (3.4-5.0); Alkaline Phosphatase 104 U/L (34-104); Anion Gap 9 (3-11); Aspartate Aminotransferase 16 U/L (13-39); BUN Creatinine Ratio 19.2 (10-20); Bilirubin,Total 0.5 mg/dl (0.2-1.0); Blood Urea Nitrogen 15 mg/dl (6-23); Calcium 9.7 mg/dl (8.5-10.1); Carbon Dioxide 27 mmol/L (21-32); Chloride 102 mmol/L (98-107); Creatinine Clr Calc Pharmacy 102.8 ml/min; Est GFR (African American) 99.9 ml/min; Est GFR (Non-African American) 86.2 ml/min; Glucose 113 mg/dl (70-99(Fasting)); Potassium 3.9 mmol/L (3.5-5.1); Sodium 138 mmol/L (136-145); Total Protein 7.7 gm/dl (6.0-8.3); Troponin I < 0.03 ng/ml (0-0.04)
[2021-05-15] MEDS ORDERED: NITROGLYCERIN SL 0.4 MG/TAB TAB SL STA (22:14)
--- NOTE | 2021-05-15 22:57 | History & Physical Report ---
Date of Service May 15, 2021 Assessment & Plan (1) Atypical chest pain: Plan: 56yo female with history of tobacco use, Hypertension presenting with several weeks of intermittent substernal chest discomfort. EKG with no acute ischemic changes. Troponin x 1 negative. -Observation to medical with telemetry -Trend troponin -Check A1C and Lipid panel -Stress echo in AM (2) Hypertension: Plan: Elevated on arrival, presently 137/78 -Hold Metoprolol for stress testing -Resume in AM -Monitor BP (3) GERD (gastroesophageal reflux disease): Plan: Chronic -Pepcid 40mg po daily (4) Frequent PVCs: Plan: Possibly secondary to stress, anxiety. Electrolyes WNL -Check TSH -Telemetry monitoring History of Present Illness Chief Complaint: chest pain Primary Care Provider: Donal David MD Mariana Bronson is a 56yo female with history of HTN, prior episode of atrial fibrillation presenting with chest pain. Patient has been under a great deal of emotional stress lately - her son is presently in the MICU at [facility] for the last 4-5 weeks. Patient has been experiencing episodic chest pain. Has been seen in the ER for this complaint on 05/07/21, 05/09/21, 05/10/21 and her PCP on 05/12/21. She has had uncontrolled blood pressure as well - recently had her Metoprolol tartrate increased to 25mg qAM and 12.5mg qPM. She has also been prescribed Ativan PRN anxiety. Patient developed substernal chest pain while at rest approximately one hour prior to arrival. She was at the [employer] store trying to get a new telephone. Her pain was 4/10 in severity with radiation to left neck, left arm and between her shoulder blades. Lasted appx 1-2 hours then improved. She had associated nausea and shortness of breath. Her pain tonight was similar to prior episodes of chest pain with exception of radiation to between the shoulder blades which is new. Still with "torso" discomfort in the ER. Relieved with SL Nitro x 1. Patient is active and independent. She lives alone in [place] and takes care of house and yard maintenance. She has never experienced exertional symptoms of chest pain or shortness of breath before. She did have some mild substernal chest discomfort that developed during sweeping snow off her porch earlier this week. No history of CAD. No prior stress testing or cardiac catheterizations. Patient is to see Cardiology early next week. ER Course: ASA 81mg prior to arrival, Nitro x 1 Allergies Allergy/AdvReac Type Severity Reaction Status Date / Time No Known Allergies Allergy Verified 05/15/21 23:53 Home Medications Medication Instructions Recorded Confirmed Type omeprazole 20 mg tablet,delayed 20 mg PO DAILY 04/18/20 05/15/21 History release magnesium oxide 500 mg tablet 500 mg PO QAM 04/26/20 05/15/21 History multivitamin (Daily Multi-Vitamin) 1 tab PO DAILY 04/26/20 05/15/21 History famotidine 20 mg tablet 20 mg PO BID #20 tab 05/07/21 05/15/21 Rx lorazepam 1 mg tablet 1 mg PO Q8H PRN #30 tab 05/12/21 05/15/21 Rx metoprolol tartrate 25 mg tablet 12.5 mg PO QPM 05/15/21 05/15/21 History metoprolol tartrate 25 mg tablet 25 mg PO QAM 05/15/21 05/15/21 History niacin 100 mg tablet 400 mg PO DAILY 05/15/21 05/15/21 History Past Med/Surg History Medical History Atrial fibrillation with RVR GERD (gastroesophageal reflux disease) No pertinent family history Surgical History No pertinent past surgical history Family History Other No significant family history Social History Smoking Status: Current every day smoker Tobacco Type: Cigarettes Cigarettes Per Day: 20; Hx Alcohol Use: Yes Alcohol type: beer Alcohol Intake Frequency: 2-4 x/Month Hx Substance Use: No Preferred Language: Spanish Communication Ability: Effective Events Specialist Required: No Beliefs That Will Affect Care: None Current Living Situation: Alone Feels Safe at Home: Yes Assistive Devices: None Review of Systems Review of Systems: All systems reviewed & are unremarkable except as noted in HPI & below Physical Exam Physical Exam: General: patient resting comfortably, NAD, non-toxic in appearance, AA&O x 4 Skin: warm, dry, intact, no rashes or lesions HEENT: NC/AT, PERRL, EOMI, anicteric sclera, conjunctiva without injection, external ear normal to inspection and nontender, nares patent, moist mucus membranes, dentition intact, no oropharyngeal lesions, neck supple, trachea midline, no LAD, no thyromegaly, no JVD Heart: +S1/S2, regular, no m/r/g, no reproducible chest wall pain Lungs: equal air entry bilaterally, no rales/rhonchi/wheezes Abd: +BS, soft, NT/ND, no masses/organomegaly/ascites Ext: warm, 2+ pulses in UE/LE bilaterally, no clubbing/cyanosis or edema Neuro: nonfocal, patient AA&O x 4, speech intact, no facial droop, moving all extremities on command with equal strength 5/5 Results & Data Results & Data ([facility]) Vital Signs (Past 12 Hours) Vital Signs Temp Pulse Pulse Resp BP BP Pulse Ox 05/15/21 22:31 75 20 119/62 96 05/15/21 19:36 36.6 C 89 20 197/100 H 98 Laboratory Results Laboratory Results WBC 12.05 K/uL (4.8-10.8) H 05/15/21 19:43 RBC 5.26 M/uL (4.2-5.4) 05/15/21 19:43 Hgb 15.3 g/dL (12.0-16.0) 05/15/21 19:43 Hct 46.5 % (37-47) 05/15/21 19:43 MCV 88.4 fL (80-100) 05/15/21 19:43 MCH 29.1 pg (25-34) 05/15/21 19:43 MCHC 32.9 g/dL (32-36) 05/15/21 19:43 RDW Std Deviation 42.4 fL (36.4-46.3) 05/15/21 19:43 RDW Coeff of Taya 13.0 % (11.5-14.5) 05/15/21 19:43 Plt Count 308 K/uL (130-400) 05/15/21 19:43 MPV 11.0 fL (7.4-10.4) H 05/15/21 19:43 Immature Gran % (Auto) 0.2 % 05/15/21 19:43 Neut % (Auto) 59.9 % 05/15/21 19:43 Lymph % (Auto) 30.4 % 05/15/21 19:43 [place] % (Auto) 8.0 % 05/15/21 19:43 Eos % (Auto) 1.2 % 05/15/21 19:43 Baso % (Auto) 0.3 % 05/15/21 19:43 Neut # (Auto) 7.21 K/uL (1.4-6.5) H 05/15/21 19:43 Lymph # (Auto) 3.66 K/uL (1.2-3.4) H 05/15/21 19:43 [place] # (Auto) 0.97 K/uL (0.11-0.59) H 05/15/21 19:43 Eos # (Auto) 0.14 K/uL (0-0.5) 05/15/21 19:43 Baso # (Auto) 0.04 K/uL (0-0.2) 05/15/21 19:43 Immature Gran # (Auto) 0.03 K/uL (0.00-0.02) H 05/15/21 19:43 PT 10.2 Seconds (9.0-12.0) 05/15/21 19:43 INR 1.0 (0.9-1.1) 05/15/21 19:43 APTT 26.5 Seconds (21.0-31.0) 05/15/21 19:43 PTT Ratio 1.0 05/15/21 19:43 Sodium 138 mmol/L (136-145) 05/15/21 19:43 Potassium 3.9 mmol/L (3.5-5.1) 05/15/21 19:43 Chloride 102 mmol/L (98-107) 05/15/21 19:43 Carbon Dioxide 27 mmol/L (21-32) 05/15/21 19:43 Anion Gap 9 (3-11) 05/15/21 19:43 BUN 15 mg/dl (6-23) 05/15/21 19:43 Creatinine 0.78 mg/dl (0.6-1.2) 05/15/21 19:43 Est Cr Clr Drug Dosing 102.8 ml/min 05/15/21 19:43 Est GFR ( Amer) 99.9 ml/min 05/15/21 19:43 Est GFR (Non-Af Amer) 86.2 ml/min 05/15/21 19:43 BUN/Creatinine Ratio 19.2 (10-20) 05/15/21 19:43 Glucose 113 mg/dl (70-99(Fasting)) H 05/15/21 19:43 Calcium 9.7 mg/dl (8.5-10.1) 05/15/21 19:43 Magnesium 2.0 mg/dl (1.7-2.4) 05/15/21 19:43 Total Bilirubin 0.5 mg/dl (0.2-1.0) 05/15/21 19:43 AST 16 U/L (13-39) 05/15/21 19:43 ALT 25 U/L (7-52) 05/15/21 19:43 Alkaline Phosphatase 104 U/L (34-104) 05/15/21 19:43 Troponin I < 0.03 ng/ml (0-0.04) 05/15/21 19:43 Total Protein 7.7 gm/dl (6.0-8.3) 05/15/21 19:43 Albumin 4.7 gm/dl (3.4-5.0) 05/15/21 19:43 Globulin 3.0 gm/dl (2.5-4.0) 05/15/21 19:43 Albumin/Globulin Ratio 1.6 (0.9-2) 05/15/21 19:43 SARS-CoV-2, RNA, NAAT NEGATIVE (NEGATIVE) 05/15/21 Unknown Impressions Chest X-Ray 05/15/21 19:39 SINGLE VIEW CHEST CLINICAL HISTORY: Atypical chest pain. FINDINGS: An AP, portable, upright chest radiograph is compared to study dated 05/10/2021. Correlation is made with chest CT dated 11/15/2020. The cardiomediastinal silhouette is unremarkable noting mild atherosclerotic calcification of the thoracic aorta. There is chronic elevation of the right hemidiaphragm with right basilar scarring/atelectasis. No airspace consolidation or large pleural effusion is identified. No pneumothorax is seen. The skeletal structures appear osteopenic. The bony thorax is grossly intact. IMPRESSION: No acute cardiopulmonary abnormality. ACT 112: Negative or not required by law. Electronically signed by: Yonis Campos M.D. 05/15/2021 8:02 PM ECG Additional Comments: EKG wtih SR at 90, frequent PVCs, no acute ischemic changes Code Status & VTE Plan VTE Prophylaxis Plan VTE Prophylaxis will be ordered: Yes PG Care Time/CCT Total # of Minutes Spent Total Time Spent with Patient: Total time spent is greater than 50% in coordination of care (as documented) at patient's floor/unit and/or counseling patient: Coding Level of Care Code INT OBSERVATION CARE 50M LVL 2 Diagnoses Hypertension I10 Atypical chest pain R07.89 GERD (gastroesophageal reflux disease) K21.9 Esophagitis presence: esophagitis presence not specified Frequent PVCs I49.3 (1) GERD (gastroesophageal reflux disease) Esophagitis presence: esophagitis presence not specified Qualified Code(s): K21.9 - Gastro-esophageal reflux disease without esophagitis
--- NOTE | 2021-05-16 00:43 | Emergency Department Note ---
Impression & Plan Retrosternal chest pain, Hypertension, Shortness of breath ED Provider Note INFORMANT: Patient ED PROVIDER(S): Vinh Marina MD CHIEF COMPLAINT: Chest pain PLAN: Disposition: Admitted Condition: Good Outpatient prescription management: none Referral: None MEDICAL DECISION MAKING: Patient presented because of chest pain shortness of breath. She was seen prior for similar issues. She has not had a stress test yet. The patient had taken aspirin prior to arrival. She was given a dose of nitro. Patient's chest x-ray was unremarkable. Her CBC and chemistry panel showed a slight leukocytosis. Troponin was negative. ECG did not show any acute findings. telemetry monitor did show frequent ectopy but no dysrhythmia. Given the patient's history and multiple prior visits further management in the hospital was felt to be appropriate. Consultation was made with Dr. Connell of the hospitalist service. Patient was admitted for further management. Triage Nursing notes reviewed and agree them. Vital Signs: reviewed and remarkable for hypertension Differential diagnosis: Cardiac ischemia, aortic dissection, pulmonary embolism, pneumothorax, pneumonia, pericarditis, myocarditis, esophageal rupture, GERD, cholecystitis, p ancreatitis, musculoskeletal, as well as other pathologies. Diagnostics interpreted by me: ECG: Twelve-lead ECG reveals sinus rhythm with PVCs at [address] elevation or depression. No PACs or PVCs. Normal QRS and axis. Cardiac Monitoring: Cardiac monitoring ordered by me: The patient was placed on continuous cardiac monitoring and observed. It revealed a normal sinus rhythm at 67 bpm. Frequent PVCs. Imaging studies: Chest x-ray. Findings: A chest x-ray was performed and revealed no pneumothorax, effusion, infiltrate, pulmonary edema, free air under the diaphragm, or wide mediastinum. Impression: No acute disease. HPI: The patient is a 56 year old female who presents to the Emergency Room with complaints of chest pain. This started about 1 hour agoand is a recurrent problem for the patient. She has been seen 3 other times for similar issues. Work-ups during those visits did not reveal any significant issues other than frequent ectopy. The patient was dealing with a lot of anxiety but states that her son's health crisis has improved. The patient also notes the following associated symptoms, pain radiating to the neck and jaw, back pain. The patient has taken aspirin today for relieving factors. Current pain is rated as 4/10. Pt denies LOC, headache, fevers, chills, diaphoresis, visual changes, neck pain, nausea, vomiting, abdominal pain, back pain, melena, hematochezia, urinary symptoms, numbness, weakness, lymphadenopathy, rash, or other complaints. ROS: See above HPI for pertinent positives & negatives. A total of 10 systems reviewed and were otherwise negative. PAST MEDICAL HISTORY:See Below , A. fib, hypertension PAST SURGICAL HISTORY:See Below, FAMILY HISTORY:See Below SOCIAL HISTORY:See Below, smoker HOME MEDICATIONS:See Below ALLERGIES:See Below VITALS:See Below PHYSICAL EXAMINATION: GENERAL: Awake, alert, mildly anxious-appearing, in no distress HENT: Normocephalic, atraumatic. Oropharynx unremarkable. EYES: Normal conjunctiva. Sclera non-icteric. NECK: Inspection normal. Non-tender. Supple. No nuchal rigidity. FROM. No masses. RESPIRATORY: Clear to auscultation. No wheezes. No rales. Normal respiratory effort. CARDIAC: Normal rate. Normal rhythm. No murmurs. No rubs. Extremities warm and well perfused. Pulses equal. No JVD. GI: Soft, non-distended. No tenderness to palpation. No rebound or guarding. No masses. RECTAL: Deferred. MUSCULOSKELETAL: Atraumatic. Chest examination reveals no tenderness. The back is symmetrical on inspection without obvious abnormality. There is no CVA tenderness to palpation. No joint edema. LOWER EXTREMITIES: Calves are equal size bilaterally and non-tender. No edema. No discoloration. NEURO: Normal sensorium. No sensory or motor deficits noted. SKIN: No rash or jaundice noted. 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 Beliefs That Will Affect Care: None Current Living Situation: Alone Feels Safe at Home: Yes Assistive Devices: None Allergies Allergies Allergy/AdvReac Type Severity Reaction Status Date / Time No Known Allergies Allergy Verified 05/15/21 23:53 Home Meds Home Medications Medication Instructions Recorded Confirmed omeprazole 20 mg tablet,delayed 20 mg PO DAILY 04/18/20 05/15/21 release magnesium oxide 500 mg tablet 500 mg PO QAM 04/26/20 05/15/21 multivitamin (Daily Multi-Vitamin) 1 tab PO DAILY 04/26/20 05/15/21 metoprolol tartrate 25 mg tablet 12.5 mg PO QPM 05/15/21 05/15/21 metoprolol tartrate 25 mg tablet 25 mg PO QAM 05/15/21 05/15/21 niacin 100 mg tablet 400 mg PO DAILY 05/15/21 05/15/21 Previous Rx's Medication Instructions Recorded famotidine 20 mg tablet 20 mg PO BID #20 tab 05/07/21 lorazepam 1 mg tablet 1 mg PO Q8H PRN #30 tab 05/12/21 Results & Data (ED) Vital Signs Vital Signs - 24 hr 05/15/21 19:36 05/15/21 22:31 05/15/21 23:04 Temperature 36.6 C Temperature Source Temporal Artery Scan Pulse Rate 89 70 Pulse Rate [Right Finger] 75 Pulse Rate from SpO2 Sensor Pulse Rhythm [Right Finger] Regular Pulse Strength [Right Finger] Normal Respiratory Rate 20 20 20 Respiratory Effort / Characteristics Non-Labored Respiratory Depth Normal Respiratory Pattern Regular Blood Pressure 197/100 H 123/63 Blood Pressure [Left Arm] 119/62 Blood Pressure Mean 132 83 Blood Pressure Mean [Left Arm] 81 Blood Pressure Position [Left Arm] Sitting Pulse Oximetry 98 96 96 Oxygen Delivery Method Room Air Room Air Sepsis Recent Fever Within 48 Hours No Sepsis New/Unexplained Change in Mental Status N/A Sepsis Action Taken by Nursing No Action Required 05/15/21 23:30 Temperature Temperature Source Pulse Rate 67 Pulse Rate [Right Finger] Pulse Rate from SpO2 Sensor 68 Pulse Rhythm [Right Finger] Pulse Strength [Right Finger] Respiratory Rate 19 Respiratory Effort / Characteristics Respiratory Depth Respiratory Pattern Blood Pressure Blood Pressure [Left Arm] Blood Pressure Mean Blood Pressure Mean [Left Arm] Blood Pressure Position [Left Arm] Pulse Oximetry 97 Oxygen Delivery Method Room Air Sepsis Recent Fever Within 48 Hours Sepsis New/Unexplained Change in Mental Status Sepsis Action Taken by Nursing Laboratory Data Result diagrams: 05/15/21 19:43 05/15/21 19:43 Lab Results 05/15/21 05/15/21 05/15/21 Range/Units 19:43 19:43 19:43 WBC 12.05 H (4.8-10.8) K/uL RBC 5.26 (4.2-5.4) M/uL Hgb 15.3 (12.0-16.0) g/dL Hct 46.5 (37-47) % MCV 88.4 (80-100) fL MCH 29.1 (25-34) pg MCHC 32.9 (32-36) g/dL RDW Std Deviation 42.4 (36.4-46.3) fL RDW Coeff of Taya 13.0 (11.5-14.5) % Plt Count 308 (130-400) K/uL MPV 11.0 H (7.4-10.4) fL Immature Gran % (Auto) 0.2 % Neut % (Auto) 59.9 % Lymph % (Auto) 30.4 % [place] % (Auto) 8.0 % Eos % (Auto) 1.2 % Baso % (Auto) 0.3 % Neut # (Auto) 7.21 H (1.4-6.5) K/uL Lymph # (Auto) 3.66 H (1.2-3.4) K/uL [place] # (Auto) 0.97 H (0.11-0.59) K/uL Eos # (Auto) 0.14 (0-0.5) K/uL Baso # (Auto) 0.04 (0-0.2) K/uL Immature Gran # (Auto) 0.03 H (0.00-0.02) K/uL PT 10.2 (9.0-12.0) Seconds INR 1.0 (0.9-1.1) APTT 26.5 (21.0-31.0) Seconds PTT Ratio 1.0 Sodium 138 (136-145) mmol/L Potassium 3.9 (3.5-5.1) mmol/L Chloride 102 (98-107) mmol/L Carbon Dioxide 27 (21-32) mmol/L Anion Gap 9 (3-11) BUN 15 (6-23) mg/dl Creatinine 0.78 (0.6-1.2) mg/dl Est Cr Clr Drug Dosing 102.8 ml/min Est GFR ( Amer) 99.9 ml/min Est GFR (Non-Af Amer) 86.2 ml/min BUN/Creatinine Ratio 19.2 (10-20) Glucose 113 H (70-99(Fasting)) mg/dl Calcium 9.7 (8.5-10.1) mg/dl Magnesium (1.7-2.4) mg/dl Total Bilirubin 0.5 (0.2-1.0) mg/dl AST 16 (13-39) U/L ALT 25 (7-52) U/L Alkaline Phosphatase 104 (34-104) U/L Troponin I < 0.03 (0-0.04) ng/ml Total Protein 7.7 (6.0-8.3) gm/dl Albumin 4.7 (3.4-5.0) gm/dl Globulin 3.0 (2.5-4.0) gm/dl Albumin/Globulin Ratio 1.6 (0.9-2) SARS-CoV-2, RNA, NAAT (NEGATIVE) 05/15/21 05/15/21 Range/Units 19:43 Unknown WBC (4.8-10.8) K/uL RBC (4.2-5.4) M/uL Hgb (12.0-16.0) g/dL Hct (37-47) % MCV (80-100) fL MCH (25-34) pg MCHC (32-36) g/dL RDW Std Deviation (36.4-46.3) fL RDW Coeff of Taya (11.5-14.5) % Plt Count (130-400) K/uL MPV (7.4-10.4) fL Immature Gran % (Auto) % Neut % (Auto) % Lymph % (Auto) % [place] % (Auto) % Eos % (Auto) % Baso % (Auto) % Neut # (Auto) (1.4-6.5) K/uL Lymph # (Auto) (1.2-3.4) K/uL [place] # (Auto) (0.11-0.59) K/uL Eos # (Auto) (0-0.5) K/uL Baso # (Auto) (0-0.2) K/uL Immature Gran # (Auto) (0.00-0.02) K/uL PT (9.0-12.0) Seconds INR (0.9-1.1) APTT (21.0-31.0) Seconds PTT Ratio Sodium (136-145) mmol/L Potassium (3.5-5.1) mmol/L Chloride (98-107) mmol/L Carbon Dioxide (21-32) mmol/L Anion Gap (3-11) BUN (6-23) mg/dl Creatinine (0.6-1.2) mg/dl Est Cr Clr Drug Dosing ml/min Est GFR ( Amer) ml/min Est GFR (Non-Af Amer) ml/min BUN/Creatinine Ratio (10-20) Glucose (70-99(Fasting)) mg/dl Calcium (8.5-10.1) mg/dl Magnesium 2.0 (1.7-2.4) mg/dl Total Bilirubin (0.2-1.0) mg/dl AST (13-39) U/L ALT (7-52) U/L Alkaline Phosphatase (34-104) U/L Troponin I (0-0.04) ng/ml Total Protein (6.0-8.3) gm/dl Albumin (3.4-5.0) gm/dl Globulin (2.5-4.0) gm/dl Albumin/Globulin Ratio (0.9-2) SARS-CoV-2, RNA, NAAT NEGATIVE (NEGATIVE) Administered Medications Discontinued Medications Nitroglycerin (Nitroglycerin Sl 0.4 Mg/Tab Tab) 0.4 mg SL NOW STA Stop: 05/15/21 22:15 Last Admin: 05/15/21 22:36 Dose: 0.4 mg Documented by: [id number] Imaging Data Radiologist's Impression: Chest X-Ray 05/15/21 19:39 SINGLE VIEW CHEST CLINICAL HISTORY: Atypical chest pain. FINDINGS: An AP, portable, upright chest radiograph is compared to study dated 05/10/2021. Correlation is made with chest CT dated 11/15/2020. The cardiomediastinal silhouette is unremarkable noting mild atherosclerotic calcification of the thoracic aorta. There is chronic elevation of the right hemidiaphragm with right basilar scarring/atelectasis. No airspace consolidation or large pleural effusion is identified. No pneumothorax is seen. The skeletal structures appear osteopenic. The bony thorax is grossly intact. IMPRESSION: No acute cardiopulmonary abnormality. ACT 112: Negative or not required by law. Electronically signed by: Yonis Campos M.D. 05/15/2021 8:02 PM Discharge Plan Visit Data Chief Complaint: Chest Pain Stated Complaint: CHEST PAIN RADIATING INTO BACK, INDIGESTION ED Provider: Vinh Marina Discharge Problem: Retrosternal chest pain, Hypertension, Shortness of breath Forms Stand Alone Forms: My [facility] [employer] Prescriptions Prescriptions: No Action lorazepam 1 mg tablet 1 mg PO Q8H PRN (Reason: anxiety) Qty: 30 RF: 0 magnesium oxide 500 mg tablet 500 mg PO QAM RF: 0 multivitamin [Daily Multi-Vitamin] Tablet 1 tab PO DAILY RF: 0 omeprazole 20 mg Tablet,Delayed Release (Dr/Ec) 20 mg PO DAILY RF: 0 metoprolol tartrate 25 mg tablet 25 mg PO QAM RF: 0 metoprolol tartrate 25 mg tablet 12.5 mg PO QPM RF: 0 niacin 100 mg Tablet 400 mg PO DAILY RF: 0 famotidine 20 mg tablet 20 mg PO BID Qty: 20 RF: 0 Referrals Referrals: Donal David MD [Primary Care Provider] -
[2021-05-16] MEDS ORDERED: ONDANSETRON INJ 2 MG/ML 2 ML VIAL IV PRN (01:33)
[2021-05-16] MEDS ORDERED: NITROGLYCERIN SL 0.4 MG/TAB TAB SL PRN (01:33)
[2021-05-16] MEDS ORDERED: ACETAMINOPHEN 325 MG TAB PO PRN (01:33)
[2021-05-16] MEDS ORDERED: ENOXAPARIN INJ 40 MG/0.4 ML SYR SQ SCH (02:00)
[2021-05-16 06:02] LABS: Basophils # (auto) 0.05 K/uL (0-0.2); Basophils % (auto) 0.6 %; Eosinophils # (auto) 0.19 K/uL (0-0.5); Eosinophils % (auto) 2.1 %; Hematocrit (blood only) 43.4 % (37-47); Hemoglobin 14.3 g/dL (12.0-16.0); Immature Granulocytes # (auto) 0.01 K/uL (0.00-0.02); Immature Granulocytes % (auto) 0.1 %; Lymphocytes # (auto) 3.04 K/uL (1.2-3.4); Lymphocytes % (auto) 33.6 %; Mean Corpuscular Hemoglobin 28.7 pg (25-34); Mean Corpuscular Hgb Conc 32.9 g/dL (32-36); Mean Corpuscular Volume 87.1 fL (80-100); Mean Platelet Volume 10.8 fL (7.4-10.4); Monocytes # (auto) 0.67 K/uL (0.11-0.59); Monocytes % (auto) 7.4 %; Neutrophils # (auto) 5.08 K/uL (1.4-6.5); Neutrophils % (auto) 56.2 %; Platelet Count 257 K/uL (130-400); RDW Standard Deviation 41.5 fL (36.4-46.3); Red Blood Count 4.98 M/uL (4.2-5.4); White Blood Count 9.04 K/uL (4.8-10.8)
[2021-05-16 06:24] LABS: Troponin I < 0.03 ng/ml (0-0.04)
[2021-05-16 06:28] LABS: Anion Gap 8 (3-11); BUN Creatinine Ratio 18.2 (10-20); Blood Urea Nitrogen 12 mg/dl (6-23); Calcium 8.6 mg/dl (8.5-10.1); Carbon Dioxide 25 mmol/L (21-32); Chloride 106 mmol/L (98-107); Chol HDL Ratio 3.6 (0-5); Cholesterol 135 mg/dl (0-200); Creatinine Clr Calc Pharmacy 121.5 ml/min; Est GFR (African American) 116.1 ml/min; Est GFR (Non-African American) 100.1 ml/min; Glucose 97 mg/dl (70-99(Fasting)); HDL Cholesterol 37 mg/dl; LDL Cholesterol Calculated 58 mg/dl; Potassium 3.9 mmol/L (3.5-5.1); Sodium 139 mmol/L (136-145); Triglycerides 198 mg/dl (0-150); VLDL Cholesterol 40 mg/dl (0-30)
[2021-05-16 07:48] LABS: Estimated Average Glucose 128 mg/dl; Hemoglobin A1C 6.1 % (4.5-5.6)
[2021-05-16] MEDS ORDERED: FAMOTIDINE 40 MG TABLET PO SCH (09:00)
[2021-05-16] MEDS ORDERED: NICOTINE 14 MG/24 HR PATCH TD SCH (09:00)
--- NOTE | 2021-05-16 11:04 | XCELERA ---
[id number]\[id number]
--- NOTE | 2021-05-16 13:24 | Discharge Summary ---
Date of Service May 16, 2021 Admission HPI Per Admitting Provider Mariana Bronson is a 56yo female with history of HTN, prior episode of atrial fibrillation presenting with chest pain. Patient has been under a great deal of emotional stress lately - her son is presently in the MICU at [facility] for the last 4-5 weeks. Patient has been experiencing episodic chest pain. Has been seen in the ER for this complaint on 05/07/21, 05/09/21, 05/10/21 and her PCP on 05/12/21. She has had uncontrolled blood pressure as well - recently had her Metoprolol tartrate increased to 25mg qAM and 12.5mg qPM. She has also been prescribed Ativan PRN anxiety. Patient developed substernal chest pain while at rest approximately one hour prior to arrival. She was at the [employer] store trying to get a new telephone. Her pain was 4/10 in severity with radiation to left neck, left arm and between her shoulder blades. Lasted appx 1-2 hours then improved. She had associated nausea and shortness of breath. Her pain tonight was similar to prior episodes of chest pain with exception of radiation to between the shoulder blades which is new. Still with "torso" discomfort in the ER. Relieved with SL Nitro x 1. Patient is active and independent. She lives alone in [place] and takes care of house and yard maintenance. She has never experienced exertional symptoms of chest pain or shortness of breath before. She did have some mild substernal chest discomfort that developed during sweeping snow off her porch earlier this week. No history of CAD. No prior stress testing or cardiac catheterizations. Patient is to see Cardiology early next week. ER Course: ASA 81mg prior to arrival, Nitro x 1 Principal Diagnosis Noncardiac chest pain Dyspepsia Discharge Exam The patient appeared well Vital signs as documented. Lungs are clear to auscultation and appear unlabored Cardiac exam, Rhythm is regular.. No murmurs, rubs or gallops. Abdominal exam reveals normal bowel sounds, soft non tender, no masses Extremities are nonedematous and both pedal pulses are normal. Neurologic exam is alert and oriented, no focal loss of strength or sensation Skin is without bruises or rashes Psychologically is without concerns for anxiety or depression. Discharge Data Allergies Allergy/AdvReac Type Severity Reaction Status Date / Time No Known Allergies Allergy Verified 05/15/21 23:53 Consultations 05/15/21 22:30 ED Decision to Admit Stat Hospital Course (1) Atypical chest pain: 56yo female with history of tobacco use, Hypertension presenting with several weeks of intermittent substernal chest discomfort. EKG with no acute ischemic changes. Troponin x 1 negative. -Observation to medical with telemetry -Trend troponin -Check A1C 6.1 and Lipid panel total cholesterol 135, LDL 58 HDL 37 -Stress echo echocardiogram shows left ventricle normal size wall thickness systolic function. Stress test was nondiagnostic due to not achieving predicted heart rate she got into a Escobar treadmill score of 5 with hypertensive response to exercise normal augmentation of all segments without development of regional wall motion abnormalities at peak exertion no specific or significant ST or T wave changes during exercise or recovery (2) Hypertension: resume metoprolol (3) GERD (gastroesophageal reflux disease): Chronic -protionix for one month and carafate for one week, discuss with pcp about other testing (4) Frequent PVCs: Possibly secondary to stress, anxiety. Electrolyes WNL -Check TSH -Telemetry monitoring Total Time Total Time Spent Total Time Spent (In Minutes): It required greater than 30 minutes to prepare this patient for discharge Discharge Plan Discharge Items Patient Disposition: Home - Self-Care Reason For Visit: CHEST PAIN Discharge Diagnosis: non cardiac chest pain no evidence of heart strain seen on Stress Echo Activity: Resume your previous activity Activity Comment: slowly increase activity Non-emergency contact: Primary Care Provider Call non-emergency contact if: your symptoms worsen Follow-up/Referrals: Donal David MD [Primary Care Provider] - Diet: Regular Addtl Attending Provider Instructions: Your stress test did not suggest that you had any abnormalities seen with your hearts function during the test. That is a good indication that your symptoms were not from your heart. Please make an appointment with your family doctor next week Pending Studies at Discharge: No Stand-Alone Forms: My [employer], Smoking Cessation Medications and DC Order Prescriptions: New sucralfate [Carafate] 1 gram tablet 1 g PO ACHS Qty: 28 RF: 0 pantoprazole [Protonix] 40 mg tablet,delayed release (DR/EC) 40 mg PO DAILY 28 Days Qty: 28 RF: 0 Continued lorazepam 1 mg tablet 1 mg PO Q8H PRN (Reason: anxiety) Qty: 30 RF: 0 magnesium oxide 500 mg tablet 500 mg PO QAM RF: 0 multivitamin [Daily Multi-Vitamin] Tablet 1 tab PO DAILY RF: 0 metoprolol tartrate 25 mg tablet 25 mg PO QAM RF: 0 metoprolol tartrate 25 mg tablet 12.5 mg PO QPM RF: 0 niacin 100 mg Tablet 400 mg PO DAILY RF: 0 Discontinued omeprazole 20 mg Tablet,Delayed Release (Dr/Ec) 20 mg PO DAILY RF: 0 famotidine 20 mg tablet 20 mg PO BID Qty: 20 RF: 0 Discharge Orders: Discharge Order (Routine); Ordered 05/16/21 Ordered By: Malachi Galindo/Other Patient Handouts: Prediabetes, 5 Steps for Eating Healthier Admission Data Admit Date/Time: 05/15/21 22:55 Attending Provider: Malachi Crawford Admit Provider: Genevieve Connell Primary Care Provider: Donal David Other Providers: Genevieve Connell Coding Level of Care Code D/C DAY MANAGEMENT >30 MINS Diagnoses Atypical chest pain R07.89 Hypertension I10 GERD (gastroesophageal reflux disease) K21.9 Esophagitis presence: esophagitis presence not specified Frequent PVCs I49.3
--- NOTE | 2021-05-16 14:02 | Electrocardiogram Report ---
Test Reason : Blood Pressure : / mmHG Vent. Rate : 090 BPM Atrial Rate : 090 BPM P-R Int : 136 ms QRS Dur : 080 ms QT Int : 366 ms P-R-T Axes : 047 013 057 degrees QTc Int : 447 ms Poor data quality, interpretation may be adversely affected Sinus rhythm with frequent Premature ventricular complexes Otherwise normal ECG When compared with ECG of 10-MAY-2021 11:07, Premature ventricular complexes are now Present Confirmed by Donal Mckenna ([id number]) on 05/16/2021 2:02:17 PM Referred By: REFERRED SELF Confirmed By:Myron Mckenna
== END 2021-05-16 13:37 | disposition home or self-care (01) ==
LOC: EDINP 19:31 → ED 19:31 → SUATTDRO 22:55